=== PATIENT | male | born 1940 | race Caucasian/White ===

== ENCOUNTER 2019-05-27 09:16 | Outpatient (CLI) | payer MEDICARE, SELFPAY ==
--- NOTE | 2019-05-27 | MR_ITS ---
WS: [id number] MRI CERVICAL SPINE HISTORY: NECK PAIN COMPARISON: 10/04/[address] 08/27/2018 Very mild LEFT scoliosis. Prior anterior cervical fusion at C5-C6. Degenerative disc disease and desiccation throughout the cervical spine. Moderate disc space narrowin g at C6-7. Craniocervical junction is negative for acute process. Mild degenerative changes at the ce rvical odontoid process. Signal within the cord is normal. C2-C3: Normal. C3-C4: Mild osteophytic ridging and disc bulging. Moderate RIGHT foraminal narrowing due to osteophyt e and facet disease. C4-C5: Mild annular disc bulging and facet arthritis. Central disc protrusion and bilateral foraminal osteophytes. Mild central stenosis with moderate bilateral foraminal stenosis. C5-C6: Annular disc bulging and osteophytic ridging. CSF still surrounds the cord. Facet joint arthri tis and osteophytes contribute to moderate to severe bilateral foraminal stenosis. C6-C7: Mild annular disc bulging and osteophytes. Mild bilateral foraminal stenosis and central steno sis. C7-T1: Mild facet arthritis. Mild RIGHT foraminal stenosis. Paraspinal soft tissue are normal. MR/MR cervical spin wo con* [id number] IMPRESSION: 1. Prior anterior cervical fusion at C5-6. 2. Multilevel spondylitic changes and stenoses throughout the cervical spine. 3. Moderate to severe bilateral foraminal stenosis at C5-6. 4. Moderate RIGHT foraminal stenosis at C3-4. 5. Mild central with moderate bilateral foraminal stenosis at C4-5. 6. Mild bilateral foraminal stenosis at C6-7 and on the RIGHT at C7-T1.
--- NOTE | 2019-05-27 09:25 | XR_ITS ---
WS: [id number] LATERAL CERVICAL SPINE: 3 view. Lateral radiographs are performed in upright neutral, flexion and extension to the patient's toleranc e. HISTORY: Neck pain COMPARISON: 08/08/2018 Normal cervical alignment. Prior anterior cervical fusion with interbody spacer at C5-6. Disc space h eight has been maintained. No lucency around the screws or hardware failure is evident. Mild narrowin g of the C6-7 disc space. Hypertrophic osteophytes anteriorly from C4. Facet joints are narrowed thro ughout. With flexion and extension no instability. XR/XR cervical spine fl/ex [id number] IMPRESSION: 1. No cervical spine instability. 2. Prior cervical fusion with interbody spacer at C5-6 is stable.
== END 2019-05-27 09:17 | disposition home or self-care (01) ==
LOC: RADWPI 09:23
PROVIDERS: Family Provider Family Medicine; PCP Family Medicine; Visit Provider Licensed Practical Nurse
DX: M54.2 Cervicalgia (principal); Z98.890 Other specified postprocedural states; M43.22 Fusion of spine, cervical region; M47.892 Other spondylosis, cervical region; M48.02 Spinal stenosis, cervical region; Z98.1 Arthrodesis status
CPT/HCPCS: 72040; 72141

== ENCOUNTER 2019-09-16 12:49 | Outpatient (CLI) | payer OTHER, SELFPAY ==
--- NOTE | 2019-09-16 12:54 | MR_ITS ---
WS: [id number] MRI LUMBAR SPINE NONCONTRAST HISTORY: INTERVERTEBRAL DISC DISORDERS WITH RADICULOPATHY COMPARISON: 10/04/2017 and 11/04/2018 TECHNIQUE: Sagittal and axial multisequence imaging is submitted. Study was ordered with contrast but patient refused IV contrast due to renal insufficiency. Cervical fusion hardware at C5-6. Slight increase in thoracic kyphosis. Moderate elevation of the RIG HT hemidiaphragm. Moderate RIGHT convex curvature the lumbar spine with asymmetric disc space narrowing. No marrow sharona a or acute fracture. Severe disc space narrowing and endplate osteophytes throughout the lumbar spine. 3 mm retrolisthesis of L1, L2 and L3. Conus terminates normally at L1-2 disc level. L1-L2: Diffuse annular disc bulging and osteophytic ridging with mild facet and ligamentum flavum hyp ertrophy. Endplate osteophytes contribute to mild foraminal and subarticular recess stenosis. L2-L3: Diffuse asymmetric annular disc bulging and osteophytic ridging. Ligamentum flavum hypertrophy and facet arthritis. Significant narrowing and encroachment into the LEFT subarticular recess by ost eophyte and disc disease. Mild central stenosis. There is moderate bilateral foraminal stenosis and s ubarticular recess stenosis. Greater encroachment into the LEFT subarticular recess. L3-L4: Asymmetric disc bulging with marked ligamentum flavum disease and facet arthritis. Osteophytic ridging around the vertebral bodies. Moderate size laminectomy defect on the RIGHT. Mild clumping of the nerve roots. Severe RIGHT foraminal stenosis with moderate LEFT subarticular recess stenosis. L4-L5: Mild narrowing of the thecal sac due to ligamentum flavum disease and facet arthritis. Annular disc bulging and facet arthritis. RIGHT hemilaminectomy defect. Mild central with moderate RIGHT for aminal and subarticular recess stenosis. Only mild stenosis on the LEFT. L5-S1: Diffuse annular disc bulging with ligamentum flavum disease and facet arthritis. Mild bilatera l foraminal stenosis. Mild encroachment and contact on the RIGHT S1 nerve root. MR/MR lumbar spine wo con* [id number] IMPRESSION: 1. Severe spondylitic changes throughout the lumbar spine with moderate RIGHT convex curvature. No significant change since the MRI of 11/04/2018. 2. Multifocal and multilevel areas of stenoses as above. 3. Severe RIGHT foraminal stenosis and moderate LEFT subarticular recess steno sis at L3-4. 4. Mild central with moderate RIGHT foraminal subarticular recess stenosis at L4-5 with mild foraminal stenosis on the LEFT. 5. Moderate bilateral subarticular recess stenosis at L2-3. Slightly greater e ncroachment into the LEFT subarticular recess. 6. Laminectomy defects on the RIGHT at L3-4 and L4-5. 7. Mild disc osteophyte encroachment upon the RIGHT S1 nerve root.
--- NOTE | 2019-09-16 13:45 | XR_ITS ---
WS: [id number] LATERAL LUMBAR SPINE: 3 view. Lateral radiographs are performed in upright neutral, flexion and extension to the patient's toleranc e. HISTORY: Low back pain COMPARISON: None available. Diffuse osteopenia. Asymmetric disc space narrowing due to the RIGHT curvature of the lumbar spine. M arked facet joint arthritis. Very little movement with flexion and extension. 5 mm retrolisthesis of L1 and L2 with no instability during flexion or extension. There are large osteophytes extending ante riorly from the vertebral bodies. XR/XR lumbar spine f/e only [id number] IMPRESSION: 1. Severe spondylitic changes of the lumbar spine. 2. 5 mm retrolisthesis of L1 and L2 without instability.
== END 2019-09-16 12:50 | disposition home or self-care (01) ==
LOC: RADWPI 12:52
PROVIDERS: Family Provider Family Medicine; PCP Family Medicine; Visit Provider Licensed Practical Nurse
DX: M54.5 Low back pain (principal); M51.16 Intervertebral disc disorders with radiculopathy, lumbar region; M48.061 Spinal stenosis, lumbar region without neurogenic claudication; M25.78 Osteophyte, vertebrae
CPT/HCPCS: 72120; 72148

== ENCOUNTER → 2019-10-28 08:41 | Outpatient (BNVA) | payer OTHER, SELFPAY | PROVIDERS: Family Provider Family Medicine; PCP Family Medicine; Visit Provider Licensed Practical Nurse | DX: M51.16 Intervertebral disc disorders with radiculopathy, lumbar region (principal); M43.16 Spondylolisthesis, lumbar region; G60.8 Other hereditary and idiopathic neuropathies; M47.22 Other spondylosis with radiculopathy, cervical region | CPT/HCPCS: 99214 ==

== ENCOUNTER → 2019-11-25 09:30 | Outpatient (BNVA) | payer OTHER, SELFPAY | PROVIDERS: Family Provider Family Medicine; PCP Emergency Medicine Emergency Medical Services; Referring Provider Licensed Practical Nurse; Visit Provider Anesthesiology Pain Medicine | DX: M47.816 Spondylosis without myelopathy or radiculopathy, lumbar region (principal); M51.36 Other intervertebral disc degeneration, lumbar region; M48.062 Spinal stenosis, lumbar region with neurogenic claudication; M51.17 Intervertebral disc disorders with radiculopathy, lumbosacral region; M47.22 Other spondylosis with radiculopathy, cervical region; M50.90 Cervical disc disorder, unspecified, unspecified cervical region; M96.1 Postlaminectomy syndrome, not elsewhere classified; M43.10 Spondylolisthesis, site unspecified; M54.9 Dorsalgia, unspecified; Z98.890 Other specified postprocedural states | CPT/HCPCS: 99205 ==

== ENCOUNTER → 2019-12-03 13:16 | Outpatient (BNVA) | payer OTHER, SELFPAY | PROVIDERS: Family Provider Family Medicine; PCP Emergency Medicine Emergency Medical Services; Visit Provider Anesthesiology Pain Medicine | DX: M47.816 Spondylosis without myelopathy or radiculopathy, lumbar region (principal); M48.062 Spinal stenosis, lumbar region with neurogenic claudication; M54.9 Dorsalgia, unspecified | CPT/HCPCS: 64493; 64494; 64495; J3490 ==

== ENCOUNTER → 2019-12-17 09:30 | Outpatient (BNVA) | payer OTHER, SELFPAY | PROVIDERS: Family Provider Family Medicine; PCP Emergency Medicine Emergency Medical Services; Visit Provider Anesthesiology Pain Medicine | DX: M48.062 Spinal stenosis, lumbar region with neurogenic claudication (principal); M51.36 Other intervertebral disc degeneration, lumbar region; M47.816 Spondylosis without myelopathy or radiculopathy, lumbar region; M47.22 Other spondylosis with radiculopathy, cervical region; M50.90 Cervical disc disorder, unspecified, unspecified cervical region; M54.9 Dorsalgia, unspecified; M96.1 Postlaminectomy syndrome, not elsewhere classified; M43.10 Spondylolisthesis, site unspecified; Z98.890 Other specified postprocedural states; Z79.891 Long term (current) use of opiate analgesic | CPT/HCPCS: 99205; 99214 ==

== ENCOUNTER → 2019-12-23 13:08 | Outpatient (BNVA) | payer OTHER, SELFPAY | PROVIDERS: Family Provider Family Medicine; PCP Emergency Medicine Emergency Medical Services; Visit Provider Anesthesiology Pain Medicine | DX: M47.816 Spondylosis without myelopathy or radiculopathy, lumbar region (principal); M48.062 Spinal stenosis, lumbar region with neurogenic claudication; M54.9 Dorsalgia, unspecified; Z79.891 Long term (current) use of opiate analgesic | CPT/HCPCS: 64635; 64636; J1030 ==

== ENCOUNTER → 2020-01-06 12:47 | Outpatient (BNVA) | payer OTHER, SELFPAY | PROVIDERS: Family Provider Family Medicine; PCP Emergency Medicine Emergency Medical Services; Visit Provider Anesthesiology Pain Medicine | DX: M47.816 Spondylosis without myelopathy or radiculopathy, lumbar region (principal); M48.062 Spinal stenosis, lumbar region with neurogenic claudication; M51.36 Other intervertebral disc degeneration, lumbar region; M96.1 Postlaminectomy syndrome, not elsewhere classified; M54.9 Dorsalgia, unspecified; M50.90 Cervical disc disorder, unspecified, unspecified cervical region; M47.22 Other spondylosis with radiculopathy, cervical region; M43.10 Spondylolisthesis, site unspecified; Z98.890 Other specified postprocedural states; Z79.891 Long term (current) use of opiate analgesic | CPT/HCPCS: 64635; 64636; 99212; J1030 ==

== ENCOUNTER → 2020-01-19 10:55 | Outpatient (BNVA) | payer OTHER, SELFPAY | PROVIDERS: Family Provider Family Medicine; PCP Emergency Medicine Emergency Medical Services; Visit Provider Anesthesiology Pain Medicine | DX: M54.41 Lumbago with sciatica, right side (principal); M48.062 Spinal stenosis, lumbar region with neurogenic claudication; M47.816 Spondylosis without myelopathy or radiculopathy, lumbar region; M47.22 Other spondylosis with radiculopathy, cervical region; M50.90 Cervical disc disorder, unspecified, unspecified cervical region; M51.36 Other intervertebral disc degeneration, lumbar region; M43.10 Spondylolisthesis, site unspecified; M96.1 Postlaminectomy syndrome, not elsewhere classified; M54.9 Dorsalgia, unspecified; Z98.890 Other specified postprocedural states; Z79.891 Long term (current) use of opiate analgesic | CPT/HCPCS: 99213; 99214 ==

== ENCOUNTER → 2020-03-15 10:45 | Outpatient (BNVA) | payer OTHER, SELFPAY | PROVIDERS: Family Provider Family Medicine; PCP Emergency Medicine Emergency Medical Services; Visit Provider Anesthesiology Pain Medicine | DX: M96.1 Postlaminectomy syndrome, not elsewhere classified (principal); M48.062 Spinal stenosis, lumbar region with neurogenic claudication; M54.9 Dorsalgia, unspecified; M47.816 Spondylosis without myelopathy or radiculopathy, lumbar region; M47.22 Other spondylosis with radiculopathy, cervical region; M50.90 Cervical disc disorder, unspecified, unspecified cervical region; M51.36 Other intervertebral disc degeneration, lumbar region; M43.10 Spondylolisthesis, site unspecified; Z79.891 Long term (current) use of opiate analgesic; Z98.890 Other specified postprocedural states | CPT/HCPCS: 99214 ==

== ENCOUNTER 2020-06-12 17:43 | Inpatient (IN) | payer OTHER, MEDICARE, SELFPAY ==
--- NOTE | 2020-06-12 18:05 | PC.NURSE ---
Dr. Mckay and Dr. Mccray notified patient had arrived to floor. Dr. Mckay requested dressing of left heel be taken down. Dr. Mccray requested catheter cart with cystoscope at bedside.
[2020-06-12 18:36] VITALS: BP 111/66; PULSE 82; RESP 18; TEMP 36.9; O2SAT 96
--- NOTE | 2020-06-12 18:36 | XRR_ITS ---
PROCEDURE INFORMATION: Exam: XR Chest Exam date and time: 06/12/2020 7:41 PM Age: 80 years old Clinical indication: Dyspnea. COPD. TECHNIQUE: Imaging protocol: XR of the chest. Views: 1 view. COMPARISON: No relevant prior studies available. FINDINGS: Lungs: There is patchy opacity in the right upper lobe compatible with pneumonia. No pulmonary consolidation. Pleural spaces: No pleural effusion. No pneumothorax. Elevation of the right hemidiaphragm. Heart/Mediastinum: The cardiac silhouette appears prominent; this may be exaggerated by AP technique. No gross evidence of pneumomediastinum. Bones/joints: Cervical hardware is incompletely visualized. No gross fracture. XR/XR chest 1V portable [id number] IMPRESSION: Patchy opacity in the right upper lobe compatible with pneumonia.
--- NOTE | 2020-06-12 18:36 | CTR_ITS ---
PROCEDURE INFORMATION: Exam: CT Left Lower Extremity Without Contrast, Foot Exam date and time: 06/12/2020 7:15 PM Age: 80 years old Clinical indication: Left foot redness, pain and swelling. Possible osteomyelitis. TECHNIQUE: Imaging protocol: CT of the Left lower extremity without contrast was performed. Exam focused on the foot. Radiation optimization: All CT scans at this facility use at least one of these dose optimization techniques: automated exposure control; mA and/or kV adjustment per patient size (includes targeted exams where dose is matched to clinical indication); or iterative reconstruction. COMPARISON: No relevant prior studies available. RADIATION DOSE METRICS: Total DLP (mGy-cm): 177.58 FINDINGS: A heel ulcer is noted. No underlying osseous destruction is seen to suggest osteomyelitis. There is an age-indeterminate, nondisplaced fracture involving the posterior malleolus of the distal tibia. There is a probable acute or subacute, oblique fracture involving the distal metadiaphysis of the fibula. Dorsal subcutaneous edema is suspicious for cellulitis. CT/CT foot LT wo con* [id number] IMPRESSION: 1. A heel ulcer is noted. No underlying osseous destruction is seen to suggest osteomyelitis. 2. There is an age-indeterminate, nondisplaced fracture involving the posterior malleolus of the distal tibia. 3. There is a probable acute or subacute, oblique fracture involving the distal metadiaphysis of the fibula. 4. Dorsal subcutaneous edema is suspicious for cellulitis. Radiation Dose CTDIVOL = (mGy): DLP = 177.58 (mGy-cm)
--- NOTE | 2020-06-12 18:42 | P.HP_ITS ---
Providers/Chief Complaint Admitting Physician: Chavo Mckay MD Primary Care Provider: Roosevelt Lieberman DO Chief Complaint: L HEEL ULCER History of Present Illness Kishan Patel is a 80 year old male with past medical history of parkinsonism, hypothyroidism, COPD, CKD stage III, questionable history of peripheral arterial disease, hyperlipidemia, hypertension, history of prostate cancer with chronic indwelling Moscoso catheter who was transferred over here from [facility]. Patient went to [facility] 4 days ago when he was sent over from wound care center because he felt sick to them. On presentation to the hospital he was found to have TUAN on CKD with creatinine of 3.6 with bruising left foot ulcers with admitted for possible cellulitis. Patient also gives history of having chronic Moscoso catheter which apparently fell out 3 weeks ago and was replaced only when he went to the hospital with a feeding tube as at the hospital they were not able to go past his prostate. He was treated with antibiotics vancomycin and cefepime at the hospital. Patient as per the transferring doctor did not have any fevers during hospitalization remained hemodynamically stable and his creatinine came down to 1.7. As they were concerned about patient having osteomyelitis needing podiatry service and proper Moscoso catheterization needing urologist further transfer to a higher center was sought and patient was [place] [facility] examination on the floor patient is lying comfortably in bed without any nausea vomiting, headache, fever. He denies having any headache abdominal pain, diarrhea, dysuria at present. He had Covid vaccination with last dose a month a go. Blood work done at the outside hospital shows a hemoglobin of 12.8, white count not available, BUN 27, down from 43, creatinine of 1.7, down from 3.6, sodium 140, potassium 3.8, phosphorus of 3.3. Unfortunately no other labs were sent over. Medications as per discharge is as 51 mg daily, lisinopril 10 mg/h lovastatin 20 mg daily, Prozac 20 mg daily, amitriptyline 25 mg daily, carbidopa 25?100 daily, levothyroxine 125 mcg daily. We will confirm from the pharmacy and to med rec. Review of Systems General: Reports: 10 or more systems reviewed and unremarkable except in HPI and below Const: Denies: fever(s), chills, body aches, change in appetite, change in weight, malaise, night sweats, diaphoresis, change in sleep pattern, daytime sleepiness or snoring Eyes: Denies: change in vision, blurry vision, photophobia, eye discomfort or eye discharge ENMT: Denies: throat pain, enlarged tonsils, hoarseness, mouth pain, oral sores, dry mouth, tinnitus, nasal congestion or post nasal drip Card: Denies: chest pain, palpitations, irregular heart rhythm, edema, swellin g of feet/ankles, lightheadedness, syncope, pre-syncope, dyspnea on exertion, orthopnea, leg pain with exertion or acrocyanosis Resp: Denies: dyspnea, productive cough, non-productive cough, wheezing, stridor, pain on inspiration, change in phlegm color, hemoptysis or chest congestion GI: Denies: abdominal pain, nausea, vomiting, hematemesis, coffee ground emesis, dysphagia, heartburn, diarrhea, constipation, bloating, GI cramping, change in bowel habits, pain on defecation, hematochezia or melena : Denies: flank pain, difficulty urinating, dysuria, urinary frequency, urinary urgency, urinary hesitancy, urinary dribbling, difficulty starting urination, change in urine stream, nocturia or hematuria Musc: Denies: neck pain, back pain, extremity pain, joint pain, joint s welling, joint redness, joint stiffness or limited range of motion Neuro: Denies: headache(s), numbness in extremities, weakness in extremities, sensory changes, lack of coordination, difficulty walking, frequent falls, dizziness, vertigo, confusion, Slurred speech present, difficulty communicating thoughts or seizure-like activity Psych: Denies: anxiety, depression, mood swings, panic attacks, hopelessness or irritability Endo: Denies: polyuria, polydipsia, tired all the time, cold intolerance, excessive sweating, flushing or heat intolerance Jef/Lymph: Denies: easy bruising or easy bleeding All/Imm: Denies: tongue swelling, facial swelling or acute wheezing Medications/Allergies Home Medications Medication Instructions Recorded Confirmed Last Taken Type albuterol sulfate 90 mcg/actuation 2 puff INHALATION Q6H PRN 03/31/19 03/15/20 Unknown History aerosol inhaler levothyroxine 125 mcg tablet 125 mcg PO DAILY 03/31/19 03/15/20 Unknown History simvastatin 20 mg tablet 20 mg PO DAILY 03/31/19 03/15/20 Unknown History acetaminophen 500 mg tablet 500 mg PO Q6H PRN 05/15/19 03/15/20 Unknown History aspirin 81 mg tablet,delayed 81 mg PO DAILY 05/15/19 03/15/20 Unknown History release omeprazole 20 mg capsule,delayed 20 mg PO DAILY cap 05/15/19 03/15/20 Unknown History release budesonide-formoterol HFA 80 2 puff INHALATION BID 10/30/19 03/15/20 Unknown History mcg-4.5 mcg/actuation aerosol inhaler amitriptyline 100 mg tablet 50 mg PO DAILY tab 11/25/19 03/15/20 Unknown History lisinopril 40 mg tablet 40 mg PO DAILY 11/25/19 03/15/20 Unknown History tizanidine 2 mg tablet 2 mg PO BID PRN #60 tab 01/06/20 03/15/20 Unknown Rx carbidopa 25 mg-levodopa 100 mg 1 tab PO ONCE tab 01/19/20 03/15/20 Unknown History tablet tramadol 50 mg tablet 50 mg PO BID PRN #60 tab 01/19/20 03/15/20 Unknown Rx gabapentin 300 mg capsule 300 mg PO TID #90 cap 03/15/20 03/15/20 Unknown Rx hydrocodone 5 mg-acetaminophen 325 1 tab PO BID PRN 7 Days #14 tab 03/15/20 03/15/20 Unknown Rx mg tablet Allergies Allergy/AdvReac Type Severity Reaction Status Date / Time No Known Allergies Allergy Verified 03/15/20 11:06 PFSH Acute PFSH: Medical History (Updated 06/12/20 @ 18:46 by Chavo Mckay MD) Cervical spondylosis with radiculopathy Chronic indwelling Moscoso catheter COPD (chronic obstructive pulmonary disease) Enrolled in chronic care management Hypothyroid 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 Rizo 06/27/18 C5-C6 anterior cervical discectomy/fusion. History of tonsillectomy Hx of knee surgery Family History Father , at age 75 Diabetes Mother , at age 102 Glaucoma Social History (Updated 03/15/20 @ 11:08 by Chrissy Phelps LPN) Smoking and tobacco status: former smoker Second hand smoke exposure: No Alcohol intake: never Household members: friend(s) Marital status: Current occupational status: retired History of recent travel: No Physical Exam Narrative: EXAM NARRATIVE: General: No acute distress, AO x3 HEENT: PERRLA, pupils bilaterally equal and reactive Chest: Normal vesicular breath sounds, no added sounds, equal good air entry bilaterally CVS: S1-S2 regular, no murmurs, no tachycardia, no gallops, no rubs Abdomen: Soft, nontender, no organomegaly, bowel sounds present Neuro: No focal deficits, no facial deformity, AO x3, power 5/5 in all limbs Extremities: Miranda size ulcers present at the heel of left foot with surrounding sloughing present, unhealthy white contact mildly foul-smelling base present, no bleeding grossly seen. Data : 06/12/20 18:36 06/12/20 18:36 A&P Assessment and plan (1) Ulcer of left foot: Status: Acute (2) Acute kidney injury superimposed on CKD: Status: Acute (3) CKD (chronic kidney disease): Status: Acute (4) Urethral stricture: Status: Acute Qualifiers: Urethral stricture sex-location: male urethra-overlapping sites Urethral stricture type: post-procedural Qualified Code(s): N99.116 - Postprocedural urethral stricture, male, overlapping sites (5) Chronic indwelling Moscoso catheter: Status: Acute (6) COPD (chronic obstructive pulmonary disease): Status: Acute (7) Hypothyroid: Status: Acute Additional A&P Information 78-year-old man with past medical history of CKD, chronic indwelling Moscoso catheter for history of prostate cancer transferred from outside hospital for podiatry and urology consultation for heel ulcer and replacement of Moscoso valerie ter. Very limited labs from outside hospital available for now. Will request for further labs. Left heel ulcer: Cannot rule out osteomyelitis. Check ESR, CRP. CT foot without contrast. If needed we can do MRI as well. Start patient on vancomycin and Zosyn. Check Vanco random level and dose Vanco accordingly. We will try to keep trough between 15 and 20. If bone involvement will consult podiatry for further assistance. If no bony involvement will consult wound care service. For now we will dress with Hydrofera Blue. Sheldon 5 every 8 hours as needed for pain control. Moscoso catheter: Right now patient has a 5 Bulgarian feeding tube for Moscoso catheter. Will consult urology for formal catheterization. Monitor urine output. UA and urine culture post Moscoso placement. TUAN on CKD: As per the records creatinine improving coming down from 3.6-1.7. Recheck BMP. Check urine lites, urine creatinine. COPD: Budesonide twice daily, DuoNebs every 6 hours. Oxygen supplementation keeping saturation over 90%. No acute exacerbation for now. For hypertension: Goal blood pressure less than 140/90 mmHg. Continue other chronic medications. Will change medication as per the clinical picture. Check wound culture, blood culture, CBC, CMP, urine lites, urine creatinine. CODE STATUS: Patient would like to be full code. Heparin 5000 every 12. Cardiac diet. Attestations Medical Necessity Statement*: Patient requires hospitalization for management of possible osteomyelitis, cellulitis with ulcer of left heel, TUAN on CKD in setting of chronic indwelling Moscoso catheter. Time Spent in Patient Care: Greater than 35 minutes (>than 50% of time spent in counselling and/or direct pt care on unit) . Coding Level of Care Code Acute [employer] for g Fwd Diagnoses Ulcer of left foot L97.529 Acute kidney injury superimposed on CKD N17.9; N18.9 CKD (chronic kidney disease) N18.9 Urethral stricture N99.116 Urethral stricture sex-location: male urethra-overlapping sites Urethral stricture type: post-procedural Chronic indwelling Moscoso catheter Z97.8 COPD (chronic obstructive pulmonary disease) J44.9 Hypothyroid E03.9
[2020-06-12 19:25] LABS: Basophils % 0.5 %; Eosinophils # 0.3 10^3/uL (0.0-0.8); Eosinophils % 4.8 %; Hemoglobin 12.1 g/dL (11.7-16.6); Lymphocytes # 1.2 10^3/uL (0.8-4.8); Lymphocytes % 18.4 %; Mean Corpuscular HGB Conc 31.8 g/dL (30.0-36.0); Mean Corpuscular Hemoglobin 30.8 pg (28.0-34.0); Mean Corpuscular Volume 96.7 fL (80-94); Mean Platelet Volume 10.1 fL (7.4-10.4); Monocytes # 0.4 10^3/uL (0.2-0.9); Monocytes % 6.6 %; Neutrophils # 4.33 10^3/uL (1.8-7.7); Neutrophils % 69.2 %; Nucleated Red Blood Cells % 0 %; Platelet Count 182 10^3/cmm (130-400); Red Blood Count 3.93 10^6/uL (4.1-5.3); Red Cell Distribution Width 14.6 % (12.1-15.1); White Blood Count 6.3 10^3/uL (4.0-10.0)
--- NOTE | 2020-06-12 19:58 | P.CONIM_ITS ---
Providers/Reason For Consult Consulting Physican/Specialty*: Urology/[place] Reason for Consult*: Urethral stricture, urinary retention, inability to pass catheter Attending Physician: Chavo Mckay MD Primary Care Provider: Roosevelt Lieberman DO History of Present Illness History of Present Illness Kishan Patel is a 80 year old male well-known to me for history of prostate cancer, recurrent UTIs, complex urethral stricture disease. He has had a complicated methodology and maintaining urethral patency via self- catheterization at times, chronic indwelling catheters at times and active as well as passive dilation of the stricture. His last visit in the office was in October 2019. At that time he was maintaining the Moscoso catheter indwelling most of the time and would take it out occasionally for a day or 2. At times he would have difficulty getting the catheter back in. He was performing self clean intermittent catheterization but was having increasing difficulty getting the catheter in over time leading to the mostly indwelling catheter. We had discussed on multiple occasions the options of converting to a suprapubic tube. He has been reluctant to even consider that. This hospitalization was initiated as a request for direct transfer from [facility]. Patient was hospitalized for acute on chronic kidney disease, progressive problems with heel wound, and general debilitation. He reported that his Moscoso catheter had come out probably 2 to 3 weeks prior and had not replaced it. Thankfully a catheter was able to be placed at [facility] but the largest that could be achieved was a 5 [place] feeding tube. This fits the picture of urethral stricture as the source of obstruction as opposed to prostatic hypertrophy. Creatinine on admission to [facility] (06/09/2020) was 3.6 and decreased by discharge today to 1.7. I was consulted for further evaluation and treatment regarding his catheterization of his bladder. Patient reports that the catheter fell out. He could not remember exactly when but someone had reported in his old records that it fell out maybe 2 to 3 weeks prior. Normally in the past he would replace it or do self-catheterization. He thinks his memory is worsening and he just forgot to do that. He also was not sure how he could get to my office where he knew that we would want to evaluate him sooner than later. Ultimately once the attempts were made to get a catheter in his stricture had progressed significantly. I reviewed her options. Performed a bedside dilation of urethral stricture with filiforms and followers. Was able after dilating to [address] [place] a 14 [place] coud? catheter with some difficulty but ultimately successful placement in good function. This will lead to further passive dilation and I can manage the rest of it on the outpatient basis after he had some time for that to occur. SEE PROCEDURE NOTE We will follow Review of Systems Const: Denies: fever(s) or chills Eyes: Denies: change in vision ENMT: Denies: odynophagia or change in hearing Card: Denies: chest pain or palpitations Resp: Reports: dyspnea; Denies: wheezing GI: Denies: abdominal pain, nausea or vomiting : Reports: difficulty urinating and change in urine stream Musc: Reports: neck pain and back pain; Denies: joint redness or joint warmth Skin/Breast: Reports: rash and changing lesions Neuro: Reports: headache(s), weakness in extremities, lack of coordination, difficulty walking and frequent falls Psych: Reports: anxiety, depression and memory loss Endo: Denies: flushing or hot flashes Jef/Lymph: Denies: easy bruising or easy bleeding All/Imm: Denies: urticaria or facial swelling Meds/Allergies Home Medications and Allergies Home Medications Medication Instructions Recorded Confirmed Last Taken Type albuterol sulfate 90 mcg/actuation 2 puff INHALATION Q6H PRN 03/31/19 03/15/20 Unknown History aerosol inhaler levothyroxine 125 mcg tablet 125 mcg PO DAILY 03/31/19 03/15/20 Unknown History simvastatin 20 mg tablet 20 mg PO DAILY 03/31/19 03/15/20 Unknown History acetaminophen 500 mg tablet 500 mg PO Q6H PRN 05/15/19 03/15/20 Unknown History aspirin 81 mg tablet,delayed 81 mg PO DAILY 05/15/19 03/15/20 Unknown History release omeprazole 20 mg capsule,delayed 20 mg PO DAILY cap 05/15/19 03/15/20 Unknown History release budesonide-formoterol HFA 80 2 puff INHALATION BID 10/30/19 03/15/20 Unknown History mcg-4.5 mcg/actuation aerosol inhaler amitriptyline 100 mg tablet 50 mg PO DAILY tab 11/25/19 03/15/20 Unknown History lisinopril 40 mg tablet 40 mg PO DAILY 11/25/19 03/15/20 Unknown History tizanidine 2 mg tablet 2 mg PO BID PRN #60 tab 01/06/20 03/15/20 Unknown Rx carbidopa 25 mg-levodopa 100 mg 1 tab PO ONCE tab 01/19/20 03/15/20 Unknown History tablet tramadol 50 mg tablet 50 mg PO BID PRN #60 tab 01/19/20 03/15/20 Unknown Rx gabapentin 300 mg capsule 300 mg PO TID #90 cap 03/15/20 03/15/20 Unknown Rx hydrocodone 5 mg-acetaminophen 325 1 tab PO BID PRN 7 Days #14 tab 03/15/20 03/15/20 Unknown Rx mg tablet Allergies Allergy/AdvReac Type Severity Reaction Status Date / Time No Known Allergies Allergy Verified 03/15/20 11:06 PFSH Acute PFSH: Medical History Cervical spondylosis with radiculopathy Chronic indwelling Moscoso catheter COPD (chronic obstructive pulmonary disease) Enrolled in chronic care management Hypothyroid 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 Rizo 06/27/18 C5-C6 anterior cervical discectomy/fusion. History of tonsillectomy Hx of knee surgery Family History Father , at age 75 Diabetes Mother , at age 102 Glaucoma Social History Smoking and tobacco status: former smoker Second hand smoke exposure: No Alcohol intake: never Household members: friend(s) Marital status: Current occupational status: retired History of recent travel: No Vitals/I&O/Wt Last Vital Signs Temp 98.5 F 06/12/20 18:36 Pulse 82 06/12/20 18:36 Resp 18 06/12/20 18:36 BP 111/66 06/12/20 18:36 Pulse Ox 96 06/12/20 18:36 Physical Exam Const: COMMON NORMALS: no acute distress and alert GENERAL APPEARANCE: well kempt and well developed HENMT: COMMON NORMALS: normocephalic and atraumatic HEAD & SCALP: normocephalic and atraumatic Eye: COMMON NORMALS: no scleral icterus Neck/C-Spine: COMMON NORMALS: negative for full ROM GENERAL: Yes trachea midline Lymph: LYMPHATIC: no lymphadenopathy noted and no lymphedema noted Resp: COMMON NORMALS: normal respiratory effort and No retractions EFFORT & INSPECTION: Yes able to speak in complete sentences, No tachypneic and No respiratory distress Cardio: COMMON NORMALS: regular rate and regular rhythm RATE: regular rate RHYTHM: regular rhythm GI: COMMON NORMALS: Soft to palpation, non-tender and no masses PALPATION: Yes Soft to palpation : COMMON NORMALS: Yes no CVA tenderness BLADDER/KIDNEY EXAM: Yes bladder normal to palpation and Yes no CVA tenderness MALE GROIN/PERINEUM EXAM: No ecchymosis PENIS: normal penis and circumcised MEATUS: hypospadias (Catheter related. Roughly 3-5 [place] feeding tube in the urethral meatus.) SCROTUM: Yes testes descended bilaterally and No Scrotal tenderness present TESTES: No testicular mass Back/Pelvis: COMMON NORMALS: no CVA tenderness Extremity: OTHER: Lower extremity weakness, left foot ulcer Neuro: COMMON NORMALS: no focal motor deficits SENSORIUM/ORIENTATION: Yes alert Psych: COMMON NORMALS: mental status grossly normal, Normal thought process present and cooperative APPEARANCE: Yes grossly normal and Yes well kempt ATTITUDE: Yes calm and Yes engaged THOUGHT PROCESS: Normal thought process present OTHER: Mild difficulty with memory Skin: COMMON NORMALS: no rashes or lesions noted and no jaundice GENERAL SKIN EXAM: no rashes or lesions noted Data Micro: Micro: Microbiology 06/12/20 18:42 Blood Culture - Pr eliminary Blood SPECIMEN [facility] 06/12/20 18:36 Blood Culture - Pr eliminary Blood SPECIMEN [facility] A&P Assessment and plan (1) Urethral stricture: Previously managed with indwelling Moscoso catheter after long-term [facility] for stricture patency maintenance with ultimate failure. Had done well until couple weeks ago the catheter fell out. He thinks the balloon was inflated at the time. Unfortunately he did not seek help to replace the catheter and developed as expected progressive stricturing of the urethra again leading to inability to pass normal catheter. Problem temporarily addressed with a 5 [place] feeding tube which helped improve drainage and improved acute kidney injury. Luba I performed filiform and follower dilations of the distal urethral stricture and placed a 12 [place] coud? tip catheter with some difficulty. Plan: Leave catheter in place for least 1 to 2 weeks and then follow-up exchanged in the clinic for a larger catheter for further passive dilation and long-term management. We will talk again about suprapubic tube options but for now the crisis is averted. Status: Acute Qualifiers: Urethral stricture type: post-procedural Urethral stricture sex- location: male urethra-overlapping sites Qualified Code(s): N99.116 - Postprocedural urethral stricture, male, overlapping sites (2) Urinary retention: Secondary to urethral stricture disease Status: Acute (3) Acute kidney injury superimposed on CKD: Exacerbated by urinary retention from urethral stricture disease. Status: Acute (4) CKD (chronic kidney disease): Status: Acute (5) Cervical disc disease: Status: Acute Coding Level of Care Code Acute Shift Mechanic for [facility] Diagnoses Urethral stricture N99.116 Urethral stricture type: post-procedural Urethral stricture sex-location: male urethra-overlapping sites Urinary retention R33.9 Acute kidney injury superimposed on CKD N17.9; N18.9 CKD (chronic kidney disease) N18.9 Cervical disc disease M50.90
[2020-06-12 20:09] LABS: Procalcitonin 0.35 ng/mL (0-0.5)
[2020-06-12 20:12] LABS: Thyroid Stimulating Hormone 35.83 uIU/mL (0.27-4.20)
[2020-06-12 20:15] VITALS: BP 138/70; PULSE 84; RESP 15; TEMP 37; O2SAT 97
[2020-06-12 20:23] LABS: Alanine Aminotransferase < 5 U/L (0-41); Albumin Level 2.9 g/dL (3.5-5.2); Alkaline Phosphatase 84 IU/L (40-130); Anion Gap 15.8 (5-19); Aspartate Amino Transferase 16 U/L (0-40); Blood Urea Nitrogen 22 mg/dL (8-23); Calcium 8.9 mg/dL (8.5-10.5); Carbon Dioxide 21 mmol/L (22-29); Chloride 107 mmol/L (98-107); Globulin 2.2 g/dL (1.3-4.6); Glucose 110 mg/dL (65-115); Osmolality Calculated 294 mOsm/kg (285-295); Potassium 3.8 mmol/L (3.5-5.1); Sodium 140 mmol/L (136-145); Total Bilirubin 0.2 mg/dL (0.15-1.2); Total Protein 5.1 g/dL (6.6-8.7)
--- NOTE | 2020-06-12 20:59 | P.PCN_ITS ---
Other Information: Procedure: 1. Filiform dilation of distal urethral stricture 2. Placement of Moscoso catheter (difficult secondary to altered anatomy) See consult performed on 06/12/2020. Patient had a 5 Stateless feeding tube in the urethra that was draining. He was having some leakage around the catheter as well. I tried to pass an 8 Stateless straight catheter but this was too large to get through the strictured area. The 5 Stateless was easy to move in and out. I recommended a filiform and follower dilation procedure and he agreed. Consent was obtained. A 3 Stateless straight filiform was then passed easily through the distal urethral stricture. Stricture location was approximately 1.5 to 2 cm from the hypospadiac meatus. Sequential dilations with follower secured to the 3 Stateless straight filiform was then conducted from 8 Stateless up to 16 Stateless. Good drainage with each. The filiform and 16 Stateless dilator were removed and then a 12 Stateless coud? tip catheter was passed with some difficulty through the narrowed area. Ultimately though it was able to be manipulated into the bladder with good function and the balloon was inflated without difficulty and the catheter snugged up to the prostate loosely. Catheter was placed to dependent drainage and the procedure was completed. Secured with a Esau catheter strap type device. PLANS: 1. Maintain Moscoso catheter for passive dilation 2. Will exchange for larger catheter in 1 to 2 weeks in my office for further passive dilation. Coding Level of Care Code Acute Natural History Collections Curator for [facility]
[2020-06-12 21:02] LABS: Erythrocyte Sedimentation Rate 92 mm/hr (0-10)
[2020-06-12 21:10] LABS: Iron 39 ug/dL (59-158); Percent Saturation 27.4 % (20-50); Total Iron Binding Capacity 142 mcg/dl; Unsaturated Iron Binding 103 ug/dL (112-347)
[2020-06-12 21:11] VITALS: PULSE 77; RESP 17; O2SAT 97
[2020-06-12 21:41] LABS: Vancomycin Random 15.2 ug/mL (20.0-40.0)
[2020-06-12] MEDS: sodium chloride 0.9% 1,000 ML 50 ML IV (22:16)
[2020-06-12] MEDS: piperacillin-tazobactam 3.375 GM in sodium chloride 0.9% (plus) 50 ML IV (22:18)
[2020-06-12] MEDS: famotidine 20 mg/2 mL INJ IVP (22:20)
[2020-06-12] MEDS: heparin 5,000 unit/mL INJ 1 mL 5000 UNIT SUBCUT (22:22)
[2020-06-12] MEDS: vancomycin 1,500 MG/300 ML PIGGYBACK 200 MG IV (22:42)
[2020-06-12 23:37] VITALS: BP 121/72; PULSE 82; RESP 17; TEMP 37.1; O2SAT 94
[2020-06-12 23:38] LABS: Bilirubin Urine Neg (Negative); Blood Urine 2+ (Negative); Glucose Urine UA 1+ (Normal); Ketones Urine Negative (Negative); Leukocyte Esterase Urine 1+ (Negative); Nitrate Urine Negative (Negative); Protein Urine Neg (Negative); Specific Gravity, Urine 1.015 (1.005-1.030); Urine Appearance Clear (CLEAR); Urine Color Yellow (Yellow); Urobilinogen Urine Norm (Negative); pH Urine 5 (5-7)
[2020-06-12 23:49] LABS: Potassium, Radom Urine 19 mmol/L; Urine Creatinine 58 mg/dL (39-259); Urine Random Chloride 167 mmol/L; Urine Random Sodium 177 mmol/L
[2020-06-13] VITALS (7 sets, daily range): BP systolic 110–150; BP diastolic 71–76; PULSE 81–89; RESP 16–18; TEMP 36.7–37; O2SAT 93–96
[2020-06-13 00:01] LABS: Add Urine Culture? No; Bacteria Urine TRACE /hpf; Squamous Epithelial Cell Urine 15-25 /hpf (0-5); WBC Urine 15-25 /hpf (0-5)
[2020-06-13] MEDS: piperacillin-tazobactam 3.375 GM in sodium chloride 0.9% (plus) 50 ML IV ×3 (03:40→18:07)
[2020-06-13] MEDS: heparin 5,000 unit/mL INJ 1 mL 5000 UNIT SUBCUT ×2 (05:46→18:00)
[2020-06-13] MEDS: famotidine 20 mg/2 mL INJ IVP ×2 (05:46→18:03)
[2020-06-13 07:53] LABS: Basophils % 0.6 %; Eosinophils # 0.3 10^3/uL (0.0-0.8); Eosinophils % 5.3 %; Hematocrit 36.6 % (42.0-52.0); Hemoglobin 11.8 g/dL (11.7-16.6); Lymphocytes # 1.2 10^3/uL (0.8-4.8); Lymphocytes % 19.8 %; Mean Corpuscular HGB Conc 32.2 g/dL (30.0-36.0); Mean Corpuscular Hemoglobin 30.6 pg (28.0-34.0); Mean Corpuscular Volume 94.8 fL (80-94); Monocytes # 0.5 10^3/uL (0.2-0.9); Monocytes % 8.3 %; Neutrophils # 4.05 10^3/uL (1.8-7.7); Neutrophils % 65.7 %; Nucleated Red Blood Cells % 0 %; Platelet Count 192 10^3/cmm (130-400); Red Blood Count 3.86 10^6/uL (4.1-5.3); Red Cell Distribution Width 14.6 % (12.1-15.1); White Blood Count 6.2 10^3/uL (4.0-10.0)
[2020-06-13 08:15] LABS: Lactic Sepsis W/Reflex 0.7 mmol/L (0.5-2.2)
[2020-06-13 08:17] LABS: Alanine Aminotransferase 8 U/L (0-41); Albumin Level 2.5 g/dL (3.5-5.2); Alkaline Phosphatase 78 IU/L (40-130); Aspartate Amino Transferase 19 U/L (0-40); Blood Urea Nitrogen 18 mg/dL (8-23); Carbon Dioxide 20 mmol/L (22-29); Chloride 110 mmol/L (98-107); Chol HDL Ratio 3.86 mg/dL (1.0-5.00); Cholesterol 143 mg/dL (0-200); Creatine Phosphokinase 33 U/L (39-308); Ferritin 322 ng/mL (30-400); Glucose 89 mg/dL (65-115); HDL Cholesterol 37 mg/dL (60-100); LDL Cholesterol Calculated 80 mg/dL (50-129); Magnesium 1.4 mg/dL (1.7-2.3); Osmolality Calculated 291 mOsm/kg (285-295); Phosphorus 2.2 mg/dL (2.5-4.5); Sodium 140 mmol/L (136-145); Total Bilirubin 0.3 mg/dL (0.15-1.2); Total Protein 5.5 g/dL (6.6-8.7); Triglycerides 129 mg/dL (0-150); VLDL Cholestrol Calculation 26 mg/dL (0-30)
[2020-06-13 09:22] LABS: Estmated Average Glucose 114; Hemoglobin A1C 5.6 % (4.0-6.0)
[2020-06-13] MEDS: HYDROcodone-acetaminophen 5-325 mg Tablet 1 TAB PO (09:23)
--- NOTE | 2020-06-13 12:38 | XRR_ITS ---
PROCEDURE INFORMATION: Exam: XR Left Foot Exam date and time: 06/13/2020 12:41 PM Age: 80 years old Clinical indication: Pain; Foot; Left; Additional info: Left fibula FX wih equinus deformit of left foot TECHNIQUE: Imaging protocol: XR Left foot. Views: 1 or 2 views. COMPARISON: CT foot LT wo con* [id number] 06/12/2020 7:47 PM FINDINGS: Bones/joints: The toes are angled laterally. No acute bony abnormalities seen. Soft tissues: Unremarkable XR/XR foot LT 2V [id number] IMPRESSION: 1. No acute bone abnormalities 2. Unremarkable soft tissues
--- NOTE | 2020-06-13 13:02 | P.PN_ITS ---
Subjective Subjective: Interval history: No acute events overnight. Patient has remained hemodynamically stable, afebrile. On review of the records from [facility] patient already had a urine culture which was positive for E. coli resistant to levofloxacin. Patient had a Moscoso catheter placed again last night. Vitals/I&O/Wt Last Vital Signs Temp 98.1 F 06/13/20 12:00 Pulse 89 06/13/20 12:00 Resp 17 06/13/20 12:00 BP 111/74 06/13/20 12:00 Pulse Ox 93 06/13/20 08:55 06/12/20 06/13/20 06/13/20 22:59 06:59 14:59 Intake Total 350 / 350 470 / 470 Output Total 300 / 300 750 / 1050 800 / 800 Balance -300 / -300 -400 / -700 -330 / -330 Weight last 48 hrs Weight 100.108 kg Weight 99.564 kg Physical Exam Narrative: EXAM NARRATIVE: General: No acute distress, AO x3 HEENT: PERRLA, pupils bilaterally equal and reactive Chest: Normal vesicular breath sounds, no added sounds, equal good air entry bilaterally CVS: S1-S2 regular, no murmurs, no tachycardia, no gallops, no rubs Abdomen: Soft, nontender, no organomegaly, bowel sounds present Neuro: No focal deficits, no facial deformity, AO x3, power 5/5 in all limbs Extremities: Miranda size ulcers present at the heel of left foot with surrounding sloughing present, unhealthy white contact mildly foul-smelling base present, no bleeding grossly seen. Urinary Catheter Management^: Moscoso: Cath Placed During This Visit: yes Urinary Catheter Date of Insertion: 06/12/20 Urinary Catheter Time of Insertion: 20:00 Data : 06/13/20 07:05 06/13/20 07:05 Micro: Microbiology 06/12/20 18:42 Blood Culture - Preliminary Blood SPECIMEN COLLECTED 06/12/20 18:36 Blood Culture - Preliminary Blood SPECIMEN COLLECTED A&P Assessment and plan (1) Ulcer of left foot: Status: Acute (2) Acute kidney injury superimposed on CKD: Status: Acute (3) CKD (chronic kidney disease): Status: Acute (4) Urethral stricture: Status: Acute Qualifiers: Urethral stricture sex-location: male urethra-overlapping sites Urethral stricture type: post-procedural Qualified Code(s): N99.116 - Postprocedural urethral stricture, male, overlapping sites (5) Chronic indwelling Moscoso catheter: Status: Acute (6) COPD (chronic obstructive pulmonary disease): Status: Acute (7) Hypothyroid: Status: Acute (8) Left tibial fracture: Status: Acute Additional A&P Information 78-year-old man with past medical history of CKD, chronic indwelling Moscoso catheter for history of prostate cancer transferred from outside hospital for podiatry and urology consultation for heel ulcer and replacement of Moscoso catheter. Very limited labs from outside hospital available for now. Will request for further labs. Left heel ulcer: ESR and CRP elevated though CT foot without contrast not revealing any osteomyelitis. On review from cultures from [facility] apparently patient did not have a blood culture or a wound culture done there. MRSA swab results are awaited. We will consult surgery for possible debridement. For now continue with vancomycin and Zosyn. Wound care as per surgery. [place] 5 mg every 8 hour as needed. Tibial fracture: We will consult orthopedics to see if patient needs a boot versus cast. Moscoso catheter: Appreciate urology help. Catheter placed yesterday after dilation of distal urethral stricture. Monitor urine output. UA and urine culture post Moscoso placement. TUAN on CKD: Resolved. Creatinine 1.5. Not sure what patient's baseline creatinine is. Stop IV fluids as patient is taking orally well. COPD: Nebulization as needed. Oxygen supplementation keeping saturation over 90%. No acute exacerbation for now. Hypertension: Goal blood pressure less than 140/90 mmHg. Continue other chronic medications. Will change medication as per the clinical picture. Start patient on oral iron supplementation for iron deficiency anemia. TSH elevated. Check free T3 and free T4. CODE STATUS: Patient would like to be full code. Heparin 5000 every 12. Cardiac diet. Attestations Medical Necessity Statement*: Patient requires further hospitalization for management of left heel ulcer, left tibia fracture. Time Spent in Patient Care: Greater than 35 minutes (>than 50% of time spent in counselling and/or direct pt care on unit) . Coding Level of Care Code Acute Sales Communications Manager for [facility] Mehreen Diagnoses Ulcer of left foot L97.529 Acute kidney injury superimposed on CKD N17.9; N18.9 CKD (chronic kidney disease) N18.9 Urethral stricture N99.116 Urethral stricture sex-location: male urethra-overlapping sites Urethral stricture type: post-procedural Chronic indwelling Moscoso catheter Z97.8 COPD (chronic obstructive pulmonary disease) J44.9 Hypothyroid E03.9 Left tibial fracture S82
--- NOTE | 2020-06-13 13:57 | P.CONIM_ITS ---
Providers/Reason For Consult Consulting Physican/Specialty*: Chavo Mckay MD Reason for Consult*: Left heel ulcer Attending Physician: Chavo Mckay MD Primary Care Provider: Roosevelt Lieberman DO History of Present Illness History of Present Illness Kishan Patel is a 80 year old male who was transferred from [facility] for issues with Moscoso catheter and wound care. Patient states that he had a fall in February this year and since then he has been unable to flex his left ankle. Patient was told to be nonweightbearing on the left leg. Patient subsequently developed an ulcer on the leg and due to concern about possible osteomyelitis patient was transferred here for further care. He is not a diabetic, has chronic back issues. Review of Systems General: Reports: 10 or more systems reviewed and unremarkable except in HPI and below Meds/Allergies Home Medications and Allergies Home Medications Medication Instructions Recorded Confirmed Last Taken Type albuterol sulfate 90 mcg/actuation 2 puff INHALATION Q6H PRN 03/31/19 06/13/20 06/07/20 History aerosol inhaler levothyroxine 125 mcg tablet 125 mcg PO DAILY 03/31/19 06/13/20 06/07/20 History simvastatin 20 mg tablet 20 mg PO DAILY 03/31/19 06/13/20 06/06/20 History acetaminophen 500 mg tablet 500 mg PO Q6H PRN 05/15/19 06/13/20 Unknown History aspirin 81 mg tablet,delayed 81 mg PO DAILY 05/15/19 06/13/20 06/06/20 History release omeprazole 20 mg capsule,delayed 20 mg PO DAILY cap 05/15/19 06/13/20 06/07/20 History release amitriptyline 100 mg tablet 50 mg PO DAILY tab 11/25/19 06/13/20 06/06/20 History lisinopril 40 mg tablet 40 mg PO DAILY 11/25/19 06/13/20 06/07/20 History gabapentin 300 mg capsule 300 mg PO TID #90 cap 03/15/20 06/13/20 06/07/20 Rx hydrocodone 5 mg-acetaminophen 325 1 tab PO BID PRN 7 Days #14 tab 03/15/20 06/13/20 Unknown Rx mg tablet Allergies Allergy/AdvReac Type Severity Reaction Status Date / Time No Known Allergies Allergy Verified 03/15/20 11:06 Current Medications Current Medications Generic Name Dose Route Start Last Admin Trade Name Freq PRN Reason Stop Dose Admin Hydrocodone Bitart/Acetaminophen 1 tab 06/12/20 18:36 06/13/20 09:23 Hydrocodone-Acetaminophen 5-325 Mg Tablet PO 1 tab Q8H PRN Administration MODERATE TO SEVERE PAIN Albuterol/Ipratropium 3 ml 06/12/20 21:00 06/13/20 08:57 Ipratropium-Albuterol 3 Ml Neb INHALATION Not Given Q6H.RESPIRATORY CHRYSTAL Budesonide 0.5 mg 06/13/20 09:00 06/13/20 08:56 Budesonide 0.5 Mg/2 Ml Neb INHALATION Not Given BID.RESPIRATORY CHRYSTAL Famotidine 20 mg 06/12/20 18:15 06/13/20 05:46 Famotidine 20 Mg/2 Ml Inj IVP 20 mg Q12H CHRYSTAL Administration Heparin Sodium (Beef Lung) 5,000 unit 06/12/20 18:45 06/13/20 05:46 Heparin 5,000 Unit/Ml Inj 1 Ml SUBCUT 5,000 unit Q12H CHRYSTAL Administration Piperacillin Sod/Tazobactam 50 mls @ 12.5 mls/hr 06/12/20 19:00 06/13/20 11:35 Sod 3.375 gm/ Sodium Chloride IV 12.5 mls/hr Q8H CHRYSTAL Administration Protocol Sodium Chloride 1,000 mls @ 50 mls/hr 06/12/20 18:45 06/12/20 22:16 Sodium Chloride 0.9% IV 50 mls/hr .Q20H CHRYSTAL Administration Vancomycin/PEG/NADA/Lysine/Water 1,500 mg in 300 mls @ 200 mls/hr 06/12/20 22:30 06/13/20 00:51 Vancocin IV Infused Q24H CHRYSTAL Infusion PFSH Acute PFSH: Medical History Cervical spondylosis with radiculopathy Chronic indwelling Moscoso catheter COPD (chronic obstructive pulmonary disease) Dyslipidemia Hypothyroid Parkinson disease Polyneuropathy, peripheral sensorimotor axonal Spondylolisthesis, lumbar region Urethral stricture Urinary retention Surgical History History of back surgery [facility], [place] Lumbar decompression History of cervical spinal surgery Dr. Rizo 06/27/18 C5-C6 anterior cervical discectomy/fusion. History of tonsillectomy Hx of knee surgery Family History Father , at age 75 Diabetes Mother , at age 102 Glaucoma Social History Smoking and tobacco status: former smoker Second hand smoke exposure: No Alcohol intake: never Household members: friend(s) Marital status: Current occupational status: retired History of recent travel: No Vitals/I&O/Wt Last Vital Signs Temp 98.1 F 06/13/20 12:00 Pulse 89 06/13/20 12:00 Resp 17 06/13/20 12:00 BP 111/74 06/13/20 12:00 Pulse Ox 93 06/13/20 08:55 06/12/20 06/13/20 06/13/20 22:59 06:59 14:59 Intake Total 350 / 350 470 / 470 Output Total 300 / 1050 750 / 1050 800 / 800 Balance -300 / -700 -400 / -700 -330 / -330 Weight last 48 hrs Weight 220 lb 11.2 oz Weight 219 lb 8 oz Physical Exam Narrative: EXAM NARRATIVE: HEENT: Normocephalic Eye: Sclera /conjunctiva normal Abdomen: Soft to palpation Neurological: Oriented to place person and time Skin: Intact, no lesions appreciated on gross exam Musculoskeletal: Left ankle has edema and tenderness and hyper extension, limited mobility of the left ankle. There is a 3 x 3 cm ulcer on the posterior aspect of the left heel with mild surrounding erythema and minimal necrotic tissue. Urinary Catheter Management^: Moscoso: Cath Placed During This Visit: yes Urinary Catheter Date of Insertion: 06/12/20 Urinary Catheter Time of Insertion: 20:00 Data Micro: Micro: Microbiology 06/12/20 18:42 Blood Culture - Pr eliminary Blood SPECIMEN [facility] JENNY 06/12/20 18:36 Blood Culture - Pr eliminary Blood SPECIMEN [facility] A&P Assessment and plan (1) Left tibial fracture: Obtain 2 view x-ray left foot. X-rays had shown old left tibial fracture. I am not sure if that is contributing to his limited mobility of the left ankle. Worthwhile considering an orthopedic consult Status: Acute (2) Ulcer of left foot: 3 x 3 cm ulcer on the left heel with mild erythema and minimal necrotic tissue. MRI left foot on 06/12/2020 did not any evidence of osteomyelitis Duplex studies 06/13/2020: No evidence of stenosis Apply Santyl cream with once a day dressing change Status: Acute Coding Level of Care Code Acute Local Government Legislator for [facility] Fwd Diagnoses Left tibial fracture S82.202A Ulcer of left foot L97.529
[2020-06-13 15:36] LABS: Free T4 Free Thyroxine 0.85 ng/dL (0.82-1.77); T3 Free 1.5 PG/ML (2.0-4.4)
[2020-06-13] MEDS: ferrous gluconate 324 mg Tablet PO (17:59)
--- NOTE | 2020-06-13 18:05 | USCV_ITS ---
Manoloember Kishan Age: 80 Gender: M : 1940 Exam Date: 06/13/2020 10:10 Ordering Phys: Chavo Mckay MD Technologist: Radha Sotelo Exam Location: [facility] [place] Indication: H/O Pulmonary HTN and diastolic dysfunction BP: / HR: Rhythm: Sinus Technical Quality: MEASUREMENTS (Male / Female) Normal Values FINDINGS Left Ventricle Right Ventricle Right Atrium Left Atrium Mitral Valve Aortic Valve Tricuspid Valve Pulmonic Valve Pericardium Aorta CONCLUSIONS Very limited echo nearly impossible to interpret due to poor image quality, however appear to be normal left ventricle function without pericardial effusion. Estimated ejection fraction is at least 55%. Milly Jaimes MD (Electronically Signed) Final Date: 13 June 2020 14:19 S
--- NOTE | 2020-06-13 18:48 | USR_ITS ---
PROCEDURE INFORMATION: Exam: US Duplex Lower Extremity Arteries Exam date and time: 06/13/2020 10:45 AM Age: 80 years old Clinical indication: Other: Ulceration left heel; Additional info: R/O pad TECHNIQUE: Imaging protocol: Real-time ultrasound scan of the arteries of the bilateral lower extremities with 2-D horowitz scale, color Doppler flow and spectral waveform analysis. Images documented and saved. COMPARISON: CT foot LT wo con* [id number] 06/12/2020 7:47 PM FINDINGS: Right common femoral artery: No occlusion or significant stenosis. Normal waveform. Right superficial femoral artery: No occlusion or significant stenosis. Normal waveform. Right popliteal artery: No occlusion or significant stenosis. Normal waveform. Right calf/foot arteries: No occlusion or significant stenosis in the visualized arteries. Normal waveforms. Dorsalis pedis artery is patent. Left common femoral artery: No occlusion or significant stenosis. Normal waveform. Left superficial femoral artery: No occlusion or significant stenosis. Normal waveform. Left popliteal artery: No occlusion or significant stenosis. Normal waveform. Left calf/foot arteries: No occlusion or significant stenosis in the visualized arteries. Normal waveforms. Dorsalis pedis artery is patent. US/[place] [id number] IMPRESSION: Negative for clinically significant stenosis
[2020-06-13] MEDS: amitriptyline 25 mg Tablet 50 MG PO (21:25)
[2020-06-13] MEDS: gabapentin 300 mg Capsule PO (21:25)
[2020-06-13] MEDS: vancomycin 1,500 MG/300 ML PIGGYBACK 200 MG IV (22:51)
[2020-06-14] VITALS (9 sets, daily range): BP systolic 90–127; BP diastolic 59–71; PULSE 86–93; RESP 17–18; TEMP 36.9–37.4; O2SAT 91–95
[2020-06-14] MEDS: piperacillin-tazobactam 3.375 GM in sodium chloride 0.9% (plus) 50 ML IV ×3 (02:43→18:23)
[2020-06-14] MEDS: levothyroxine 125 mcg Tablet PO (05:59)
[2020-06-14] MEDS: famotidine 20 mg/2 mL INJ IVP ×2 (06:02→18:25)
--- NOTE | 2020-06-14 06:44 | PC.NURSE ---
Patient refused his heparin dose this morning stating I do not want that shot in my stomach. This nurse educated patient on the medication and the importance of it with patient verbalizing understanding stating I still do not want it.
[2020-06-14] MEDS: gabapentin 300 mg Capsule PO ×3 (09:08→21:15)
[2020-06-14] MEDS: ferrous gluconate 324 mg Tablet PO ×2 (09:08→18:24)
[2020-06-14] MEDS: HYDROcodone-acetaminophen 5-325 mg Tablet 1 TAB PO (09:08)
[2020-06-14] MEDS: atorvastatin 40 mg Tablet 20 MG PO (09:08)
[2020-06-14] MEDS: collagenase oint 30 gm 1 APPLIC TOPICAL (09:08)
[2020-06-14] MEDS: aspirin 81 mg EC Tablet PO (09:08)
--- NOTE | 2020-06-14 16:12 | PM.PN ---
Subjective Subjective: Interval history: No acute events overnight. Patient has remained hemodynamically stable and afebrile. Denies any nausea, vomiting, headache. Complaining of foot pain. Vitals/I&O/Wt Last Vital Signs Temp 98.4 F 06/14/20 15:09 Pulse 91 06/14/20 15:09 Resp 18 06/14/20 15:09 BP 94/60 06/14/20 15:09 Pulse Ox 91 06/14/20 15:09 06/14/20 06/14/20 06/14/20 06:59 14:59 22:59 Intake Total 300 / 1791.667 170 / 170 Output Total 2250 / 3050 Balance -1950 / -1258.333 170 / 170 Weight last 48 hrs Weight 102.376 kg Weight 100.108 kg Weight 99.564 kg Physical Exam Narrative: EXAM NARRATIVE: General: No acute distress, AO x3 HEENT: PERRLA, pupils bilaterally equal and reactive Chest: Normal vesicular breath sounds, no added sounds, equal good air entry bilaterally CVS: S1-S2 regular, no murmurs, no tachycardia, no gallops, no rubs Abdomen: Soft, nontender, no organomegaly, bowel sounds present Neuro: No focal deficits, no facial deformity, AO x3, power 5/5 in all limbs Extremities: Miranda size ulcers present at the heel of left foot with surrounding sloughing present, unhealthy white contact mildly foul-smelling base present, no bleeding grossly seen. Urinary Catheter Management^: Moscoso: Cath Placed During This Visit: yes Reason for Continuing Indwelling Catheter: Chronic Indwelling Urinary Catheter on Admission Urinary Catheter Date of Insertion: 06/12/20 Urinary Catheter Time of Insertion: 20:00 Data : 06/13/20 07:05 06/13/20 07:05 Micro: Microbiology 06/12/20 18:45 Gram Stain - Final Leg - Left Wound Culture - Preliminary 06/12/20 23:15 Urine Culture - Preliminary Urine Catheterized 06/12/20 18:42 Blood Culture - Preliminary Blood NEGATIVE TO DATE 06/12/20 18:36 Blood Culture - Preliminary Blood NEGATIVE TO DATE 06/12/20 18:45 MRSA Culture - Final Nose Laboratory Results WBC 6.2 10^3/uL (4.0-10.0) 06/13/20 07:05 RBC 3.86 10^6/uL (4.1-5.3) L 06/13/20 07:05 Hgb 11.8 g/dL (11.7-16.6) 06/13/20 07:05 Hct 36.6 % (42.0-52.0) L 06/13/20 07:05 MCV 94.8 fL (80-94) H 06/13/20 07:05 MCH 30.6 pg (28.0-34.0) 06/13/20 07:05 MCHC 32.2 g/dL (30.0-36.0) 06/13/20 07:05 RDW 14.6 % (12.1-15.1) 06/13/20 07:05 Plt Count 192 10^3/cmm (130-400) 06/13/20 07:05 MPV 10.0 fL (7.4-10.4) 06/13/20 07:05 Neut % (Auto) 65.7 % 06/13/20 07:05 Lymph % (Auto) 19.8 % 06/13/20 07:05 [place] % (Auto) 8.3 % 06/13/20 07:05 Eos % (Auto) 5.3 % 06/13/20 07:05 Baso % (Auto) 0.6 % 06/13/20 07:05 Neut # (Auto) 4.05 10^3/uL (1.8-7.7) 06/13/20 07:05 Lymph # (Auto) 1.2 10^3/uL (0.8-4.8) 06/13/20 07:05 [place] # (Auto) 0.5 10^3/uL (0.2-0.9) 06/13/20 07:05 Eos # (Auto) 0.3 10^3/uL (0.0-0.8) 06/13/20 07:05 Baso # (Auto) 0.0 10^3/uL (0.0-0.1) 06/13/20 07:05 Nucleated RBC % (auto) 0 % 06/13/20 07:05 Nucleated RBCs # 0.0 /100WBC 06/13/20 07:05 ESR 92 mm/hr (0-10) H 06/12/20 18:36 Sodium 140 mmol/L (136-145) 06/13/20 07:05 Potassium 4.0 mmol/L (3.5-5.1) 06/13/20 07:05 Chloride 110 mmol/L (98-107) H 06/13/20 07:05 Carbon Dioxide 20 mmol/L (22-29) L 06/13/20 07:05 Anion Gap 14.0 (5-19) 06/13/20 07:05 BUN 18 mg/dL (8-23) 06/13/20 07:05 Creatinine 1.5 mg/dL (0.7-1.2) H 06/13/20 07:05 GFR Calculation Not Reportable 06/13/20 07:05 Glucose 89 mg/dL (65-115) 06/13/20 07:05 Estimat Average Glucose 114 06/13/20 07:05 Hemoglobin A1c 5.6 % (4.0-6.0) 06/13/20 07:05 Calculated Osmolality 291 mOsm/kg (285-295) 06/13/20 07:05 Lactic Acid 0.7 mmol/L (0.5-2.2) 06/13/20 07:05 Calcium 9.0 mg/dL (8.5-10.5) 06/13/20 07:05 Phosphorus 2.2 mg/dL (2.5-4.5) L 06/13/20 07:05 Magnesium 1.4 mg/dL (1.7-2.3) L 06/13/20 07:05 Iron 39 ug/dL (59-158) L 06/12/20 18:36 TIBC 142 mcg/dl 06/12/20 18:36 % Saturation 27.4 % (20-50) 06/12/20 18:36 Unsat Iron Binding 103 ug/dL (112-347) L 06/12/20 18:36 Ferritin 322 ng/mL (30-400) 06/13/20 07:05 Total Bilirubin 0.3 mg/dL (0.15-1.2) 06/13/20 07:05 AST 19 U/L (0-40) 06/13/20 07:05 ALT 8 U/L (0-41) 06/13/20 07:05 Alkaline Phosphatase 78 IU/L (40-130) 06/13/20 07:05 Creatine Kinase 33 U/L (39-308) L 06/13/20 07:05 C-Reactive Protein 94.0 mg/L (0.0-4.9) H 06/13/20 07:05 Total Protein 5.5 g/dL (6.6-8.7) L 06/13/20 07:05 Albumin 2.5 g/dL (3.5-5.2) L 06/13/20 07:05 Globulin 3.0 g/dL (1.3-4.6) 06/13/20 07:05 Triglycerides 129 mg/dL (0-150) 06/13/20 07:05 Cholesterol 143 mg/dL (0-200) 06/13/20 07:05 LDL Cholesterol, Calc 80 mg/dL (50-129) 06/13/20 07:05 Total VLDL Cholesterol 26 mg/dL (0-30) 06/13/20 07:05 HDL Cholesterol 37 mg/dL (60-100) L 06/13/20 07:05 Cholesterol/HDL Ratio 3.86 mg/dL (1.0-5.00) 06/13/20 07:05 Procalcitonin 0.35 ng/mL (0-0.5) 06/12/20 18:36 TSH 35.83 uIU/mL (0.27-4.20) H 06/12/20 18:36 Free T4 0.85 ng/dL (0.82-1.77) 06/13/20 07:05 Free T3 1.5 PG/ML (2.0-4.4) L 06/13/20 07:05 Urine Color Yellow (Yellow) 06/12/20 23:15 Urine Appearance Clear (CLEAR) 06/12/20 23:15 Urine pH 5 (5-7) 06/12/20 23:15 Ur Specific [place] 1.015 (1.005-1.030) 06/12/20 23:15 Urine Protein Neg (Negative) 06/12/20 23:15 Urine Glucose (UA) 1+ (Normal) 06/12/20 23:15 Urine Ketones Negative (Negative) 06/12/20 23:15 Urine Blood 2+ (Negative) H 06/12/20 23:15 Urine Nitrate Negative (Negative) 06/12/20 23:15 Urine Bilirubin Neg (Negative) 06/12/20 23:15 Urine Urobilinogen Norm mg/dL (Negative) 06/12/20 23:15 Ur Leukocyte Esterase 1+ (Negative) H 06/12/20 23:15 Urine RBC 5-10 /hpf (0-2) H 06/12/20 23:15 Urine WBC 15-25 /hpf (0-5) H 06/12/20 23:15 Ur Squamous Epith Cells 15-25 /hpf (0-5) H 06/12/20 23:15 Amorphous Sediment Not Reportable 06/12/20 23:15 Urine Bacteria Trace /hpf (NONE) 06/12/20 23:15 Ur Random Sodium 177 mmol/L 06/12/20 23:15 Ur Random Potassium 19 mmol/L 06/12/20 23:15 Ur Random Chloride 167 mmol/L 06/12/20 23:15 Urine Creatinine 58 mg/dL (39-259) 06/12/20 23:15 Random Vancomycin 15.2 ug/mL (20.0-40.0) L 06/12/20 21:02 Impressions Chest X-Ray 06/12/20 18:36 IMPRESSION: Patchy opacity in the right upper lobe compatible with pneumonia. Foot CT 06/12/20 18:36 IMPRESSION: 1. A heel ulcer is noted. No underlying osseous destruction is seen to suggest osteomyelitis. 2. There is an age-indeterminate, nondisplaced fracture involving the posterior malleolus of the distal tibia. 3. There is a probable acute or subacute, oblique fracture involving the distal metadiaphysis of the fibula. 4. Dorsal subcutaneous edema is suspicious for cellulitis. Radiation Dose CTDIVOL = (mGy): DLP = 177.58 (mGy-cm) Foot X-Ray 06/13/20 12:38 IMPRESSION: 1. No acute bone abnormalities 2. Unremarkable soft tissues Duplex Scan Lower Extremity Artery 06/13/20 18:48 IMPRESSION: Negative for clinically significant stenosis. A&P Assessment and plan (1) Ulcer of left foot: Status: Acute (2) Acute kidney injury superimposed on CKD: Status: Acute (3) CKD (chronic kidney disease): Status: Acute (4) Urethral stricture: Status: Acute Qualifiers: Urethral stricture type: post-procedural Urethral stricture sex-location: male urethra-overlapping sites Qualified Code(s): N99.116 - Postprocedural urethral stricture, male, overlapping sites (5) Chronic indwelling Moscoso catheter: Status: Acute (6) COPD (chronic obstructive pulmonary disease): Status: Acute (7) Hypothyroid: Status: Acute (8) Left tibial fracture: Status: Acute Additional A&P Information 78-year-old man with past medical history of CKD, chronic indwelling Moscoso catheter for history of prostate cancer transferred from outside hospital for podiatry and urology consultation for heel ulcer and replacement of Moscoso catheter. Very limited labs from outside hospital available for now. Will request for further labs. Left heel ulcer: ESR and CRP elevated though CT foot without contrast not revealing any osteomyelitis. On review from cultures from [facility] apparently patient did not have a blood culture or a wound culture done there. MRSA culture is negative. Patient had bedside debridement done yesterday. Stop vancomycin but continue Zosyn for now. MRI for tomorrow to rule out osteomyelitis as suspicion is high. We will also plan for a PICC line. MRSA swab results are awaited. Wound care as per surgery. [place] 5 mg every 8 hour as needed. Tibial fracture: Care discussed with Dr. Johnson from orthopedics. He would like to see patient in his office on discharge. Moscoso catheter: Appreciate urology help. Catheter placed yesterday after dilation of distal urethral stricture. Monitor urine output. UA and urine culture post Moscoso placement. TUAN on CKD: Resolved. Stable creatinine 1.5. Not sure what patient's baseline creatinine is. Stop IV fluids as patient is taking orally well. COPD: Nebulization as needed. Oxygen supplementation keeping saturation over 90%. No acute exacerbation for now. Hypertension: Goal blood pressure less than 140/90 mmHg. Blood pressure on the softer side so we will continue to hold off on lisinopril. Mean arterial pressure over 60. Continue other chronic medications. Will change medication as per the clinical picture. Start patient on oral iron supplementation for iron deficiency anemia. Increased dose of levothyroxine to 150 mcg daily CODE STATUS: Patient would like to be full code. Heparin 5000 every 12. Cardiac diet. Physical therapy evaluation appreciated. Because of generalized deconditioning patient would benefit from SNF placement. Will consult case management. Attestations Medical Necessity Statement*: Requires further hospitalization for management of left heel ulcer, possible osteomyelitis while safe discharge planning is sought. Time Spent in Patient Care: Greater than 35 minutes (>than 50% of time spent in counselling and/or direct pt care on unit). Coding Level of Care Code Acute Cavity Pump Operator for Chg Fwd Diagnoses Ulcer of left foot L97.529 Acute kidney injury superimposed on CKD N17.9; N18.9 CKD (chronic kidney disease) N18.9 Urethral stricture N99.116 Urethral stricture type: post-procedural Urethral stricture sex-location: male urethra-overlapping sites Chronic indwelling Moscoso catheter Z97.8 COPD (chronic obstructive pulmonary disease) J44.9 Hypothyroid E03.9 Left tibial fracture S82.202A
--- NOTE | 2020-06-14 16:13 | P.PN_ITS ---
Subjective Subjective: Interval history: Patient still has some left leg pain but denies any fevers or chills, feels slightly better Vitals/I&O/Wt Last Vital Signs Temp 98.4 F 06/14/20 15:09 Pulse 91 06/14/20 15:09 Resp 18 06/14/20 15:09 BP 94/60 06/14/20 15:09 Pulse Ox 91 06/14/20 15:09 06/14/20 06/14/20 06/14/20 06:59 14:59 22:59 Intake Total 300 / 1791.667 170 / 170 Output Total 2250 / 3050 Balance -1950 / -1258.333 170 / 170 Weight last 48 hrs Weight 225 lb 11.2 oz Weight 220 lb 11.2 oz Weight 219 lb 8 oz Physical Exam Narrative: EXAM NARRATIVE: Left left foot: Warm to touch, tender, and improved range of movement, wound has less necrotic tissue today Urinary Catheter Management^: Moscoso: Cath Placed During This Visit: yes Reason for Continuing Indwelling Catheter: Chronic Indwelling Urinary Catheter on Admission Urinary Catheter Date of Insertion: 06/12/20 Urinary Catheter Time of Insertion: 20:00 Data : 06/13/20 07:05 06/13/20 07:05 Micro: Microbiology 06/12/20 18:45 Gram Stain - Final Leg - Left Wound Culture - Preliminary 06/12/20 23:15 Urine Culture - Preliminary Urine Catheterized 06/12/20 18:42 Blood Culture - Preliminary Blood NEGATIVE TO DATE 06/12/20 18:36 Blood Culture - Preliminary Blood NEGATIVE TO DATE 06/12/20 18:45 MRSA Culture - Final Nose A&P Assessment and plan (1) Left tibial fracture: X-ray left foot did not show any acute fractures Status: Acute (2) Ulcer of left foot: 3 x 3 cm ulcer on the left heel with mild erythema and minimal necrotic tissue improved on Santyl CT left foot did not show any evidence of osteomyelitis, will obtain MRI tomorrow. If MRI does not show any evidence of osteomyelitis, plan for IV antibiotics for 2 to 3 weeks for soft tissue infection, if there is osteomyelitis plan for 6 weeks of IV antibiotics PICC line placement Apply Santyl cream with once a day dressing change with subsequent follow-up in wound care clinic Status: Acute Attestations Medical Necessity Statement*: Cellulitis left foot requiring IV antibiotics Coding Level of Care Code Acute Parking Control Officer for Chg Fwd Diagnoses Left tibial fracture S82.202A Ulcer of left foot L97.529
[2020-06-14] MEDS: acetaminophen 325 mg Tablet 650 MG PO (16:41)
[2020-06-14 18:01] LABS: Procalcitonin 0.28 ng/mL (0-0.5)
[2020-06-14] MEDS: amitriptyline 25 mg Tablet 50 MG PO (21:15)
[2020-06-15] MEDS: piperacillin-tazobactam 3.375 GM in sodium chloride 0.9% (plus) 50 ML IV ×2 (03:42→16:24)
[2020-06-15 04:30] VITALS: BP 103/69; PULSE 89; RESP 18; TEMP 36.7; O2SAT 96
[2020-06-15 05:57] LABS: Basophils % 0.5 %; Eosinophils # 0.4 10^3/uL (0.0-0.8); Eosinophils % 6.9 %; Hematocrit 39.9 % (42.0-52.0); Hemoglobin 12.4 g/dL (11.7-16.6); Lymphocytes # 1.3 10^3/uL (0.8-4.8); Lymphocytes % 21.2 %; Mean Corpuscular HGB Conc 31.1 g/dL (30.0-36.0); Mean Corpuscular Volume 99.8 fL (80-94); Mean Platelet Volume 9.5 fL (7.4-10.4); Monocytes # 0.6 10^3/uL (0.2-0.9); Monocytes % 9.3 %; Neutrophils # 3.78 10^3/uL (1.8-7.7); Neutrophils % 61.6 %; Nucleated Red Blood Cells % 0 %; Platelet Count 224 10^3/cmm (130-400); Red Cell Distribution Width 15.2 % (12.1-15.1); White Blood Count 6.1 10^3/uL (4.0-10.0)
[2020-06-15 06:16] LABS: Alanine Aminotransferase 13 U/L (0-41); Albumin Level 2.6 g/dL (3.5-5.2); Alkaline Phosphatase 89 IU/L (40-130); Aspartate Amino Transferase 21 U/L (0-40); Blood Urea Nitrogen 18 mg/dL (8-23); Calcium 9.1 mg/dL (8.5-10.5); Carbon Dioxide 24 mmol/L (22-29); Chloride 106 mmol/L (98-107); Globulin 3.4 g/dL (1.3-4.6); Glucose 90 mg/dL (65-115); Osmolality Calculated 285 mOsm/kg (285-295); Sodium 137 mmol/L (136-145); Total Bilirubin 0.2 mg/dL (0.15-1.2)
[2020-06-15 06:18] LABS: Anion Gap 11.4 (5-19); Potassium 4.4 mmol/L (3.5-5.1)
[2020-06-15] MEDS: heparin 5,000 unit/mL INJ 1 mL 5000 UNIT SUBCUT ×2 (06:31→18:15)
[2020-06-15] MEDS: levothyroxine 150 mcg Tablet PO (06:31)
[2020-06-15 07:14] VITALS: BP 113/71; PULSE 90; RESP 17; TEMP 36.7; O2SAT 90
[2020-06-15 08:08] VITALS: PULSE 90; RESP 16; O2SAT 94
[2020-06-15] MEDS: gabapentin 300 mg Capsule PO ×3 (08:26→21:33)
[2020-06-15] MEDS: ferrous gluconate 324 mg Tablet PO ×2 (08:27→17:34)
[2020-06-15] MEDS: aspirin 81 mg EC Tablet PO (08:27)
[2020-06-15] MEDS: collagenase oint 30 gm 1 APPLIC TOPICAL (08:27)
[2020-06-15] MEDS: atorvastatin 40 mg Tablet 20 MG PO (08:27)
--- NOTE | 2020-06-15 10:02 | PC.CHAP ---
Pastoral Care Encounter/Spiritual Assessment Type of Contact [] Declined candy maker visit [] Patient/Family/Request visit [] Outpatient visit [] Follow-up visit [] Physician referral [] Code/Alert [x] Routine visit [] Staff referral [] Actively dying [] Patient sleeping [] Family support [] [] Out of room [] Palliative care [] [] Receiving care in room [] Pre-surgical visit [] Trauma [] Long length of stay [] ICU visit [] Other: Relational/Emotional Strength [x] Patient feels connected with others/family/visitors/staff [] Distress [] Loneliness/isolation [] Abandonment Spirituality of Patient [] Person of Edel [] Attends Druze of their Edel [] Believes in Prayer [] Reads Bible or Roman Catholic materials [x] There are Spiritual issues to be addressed Production Broacher Interventions [] Prayer [x] Active listening [x] Non-anxious presence [x] Spiritual/emotional support [] Crisis/trauma care [] Spiritual counseling [] Bereavement support [] Provided bereavement packet [] Provided Bible/devotional materials [] Provided toy/stuffed animal, coloring book to patient or family member [] Provided Communion [] Anointing/[place] [] Salvation [x] Completed spiritual assessment [] Other: Impact on Illness or Injury [] Angry [] Fearful [] Anxious [] Often cries [] Exhaustion [] Unable to work [] Unable to attend episcopal [x] Unable to walk/stand [] Unable to read [] Unable to drive [] Unable to eat/drink [] Unable to sleep [] Unable to be with family [] Patient intubated [] Other: Summary Pt lives with friend so he does have limited outside support. He has several adult children all living in various states and not close to [place]. Pt stated he spent a great deal of his adult life working, traveling and living in different areas of the country. His current injury is due to a fall he took in February on the ice. A sore developed on his heel and it is so deep it goes to the bone. This has left him with limited mobility. He reports since he has been in hospital, the sore is beginning to heal and he hopes it will continue to do so in order for him to move freely again. Time spent with patient
[2020-06-15] MEDS: famotidine 20 mg/2 mL INJ IVP ×2 (10:06→20:54)
--- NOTE | 2020-06-15 10:56 | P.PN_ITS ---
Subjective Subjective: Interval history: No acute events overnight. Patient states he is feeling better. He is awake alert in bed denies any nausea, vomiting, headache. Has remained hemodynamically stable and afebrile overnight. Vitals/I&O/Wt Last Vital Signs Temp 98.0 F 06/15/20 07:14 Pulse 90 06/15/20 08:08 Resp 16 06/15/20 08:08 BP 113/71 06/15/20 07:14 Pulse Ox 94 06/15/20 08:08 06/14/20 06/15/20 06/15/20 22:59 06:59 14:59 Intake Total 100 / 270 Output Total 900 / 900 675 / 1575 Balance -800 / -630 -675 / -1305 Weight last 48 hrs Weight 100.97 kg Weight 102.376 kg Physical Exam Narrative: EXAM NARRATIVE: General: No acute distress, AO x3 HEENT: PERRLA, pupils bilaterally equal and reactive Chest: Normal vesicular breath sounds, no added sounds, equal good air entry bilaterally CVS: S1-S2 regular, no murmurs, no tachycardia, no gallops, no rubs Abdomen: Soft, nontender, no organomegaly, bowel sounds present Neuro: No focal deficits, no facial deformity, AO x3, power 5/5 in all limbs Extremities: Miranda size ulcers present at the heel of left foot with surrounding sloughing present, unhealthy white contact mildly foul-smelling base present, no bleeding grossly seen. Urinary Catheter Management^: Moscoso: Cath Placed During This Visit: yes Reason for Continuing Indwelling Catheter: Chronic Indwelling Urinary Catheter on Admission Urinary Catheter Date of Insertion: 06/12/20 Urinary Catheter Time of Insertion: 20:00 Data : 06/15/20 05:25 06/15/20 05:25 Micro: Microbiology 06/12/20 18:45 Gram Stain - Final Leg - Left Wound Culture - Preliminary 06/12/20 23:15 Urine Culture - Final Urine Catheterized A&P Assessment and plan (1) Ulcer of left foot: Status: Acute (2) Acute kidney injury superimposed on CKD: Status: Acute (3) CKD (chronic kidney disease): Status: Acute (4) Urethral stricture: Status: Acute Qualifiers: Urethral stricture sex-location: male urethra-overlapping sites Urethral stricture type: post-procedural Qualified Code(s): N99.116 - Postprocedural urethral stricture, male, overlapping sites (5) Chronic indwelling Moscoso catheter: Status: Acute (6) COPD (chronic obstructive pulmonary disease): Status: Acute (7) Hypothyroid: Status: Acute (8) Left tibial fracture: Status: Acute Additional A&P Information 78-year-old man with past medical history of CKD, chronic indwelling Moscoso catheter for history of prostate cancer transferred from outside hospital for podiatry and urology consultation for heel ulcer and replacement of Moscoso catheter. Very limited labs from outside hospital available for now. Will request for further labs. Left heel ulcer: ESR and CRP elevated though CT foot without contrast not revealing any osteomyelitis. On review from cultures from [facility] patient did not have a blood culture or a wound culture done there. MRSA culture is negative. Continue Zosyn for now. Patient awaiting MRI. PICC line to be placed today. Plan for IV antibiotics for either 3 or 6 weeks depending on results of the MRI. Most likely patient will go home on once a day vancomycin. Will consult pharmacy for vancomycin dosage. Wound care as per surgery. [place] 5 mg every 8 hour as needed. Tibial fracture: Care discussed with Dr. Johnson from orthopedics. He would like to see patient in his office on discharge. Urinary stricture/Moscoso catheter: Appreciate urology help. Catheter placed yesterday after dilation of distal urethral stricture. Monitor urine output. UA and urine culture post Moscoso placement. TUAN on CKD: Creatinine mildly worse to 1.9 today. Not sure what patient's baseline creatinine is. Start patient on normal saline 50 cc/h. COPD: Nebulization as needed. Oxygen supplementation keeping saturation over 90%. No acute exacerbation for now. Hypertension: Goal blood pressure less than 140/90 mmHg. Blood pressure on the softer side so we will continue to hold off on lisinopril. Mean arterial pressure over 60. Continue other chronic medications. Will change medication as per the clinical picture. Start patient on oral iron supplementation for iron deficiency anemia. Increased dose of levothyroxine to 150 mcg daily CODE STATUS: Patient would like to be full code. Heparin 5000 every 12. Cardiac diet. Physical therapy evaluation appreciated. Because of generalized deconditioning patient would benefit from SNF placement. Will consult case management. Attestations Medical Necessity Statement*: Patient requires further hospitalization for management of left heel ulcer, possible osteomyelitis while safe discharge planning is sought. Time Spent in Patient Care: Greater than 35 minutes (>than 50% of time spent in counselling and/or direct pt care on unit) . Coding Level of Care Code Acute Coating Inspector for Chg Fwd Diagnoses Ulcer of left foot L97.529 Acute kidney injury superimposed on CKD N17.9; N18.9 CKD (chronic kidney disease) N18.9 Urethral stricture N99.116 Urethral stricture sex-location: male urethra-overlapping sites Urethral stricture type: post-procedural Chronic indwelling Moscoso catheter Z97.8 COPD (chronic obstructive pulmonary disease) J44.9 Hypothyroid E03.9 Left tibial fracture S82.202A
[2020-06-15 11:09] VITALS: BP 102/68; PULSE 94; RESP 17; TEMP 37.2; O2SAT 90
[2020-06-15] MEDS: sodium chloride 0.9% 1,000 ML 75 ML IV (11:26)
--- NOTE | 2020-06-15 14:24 | PC.NURSE ---
MRI Pt went down for MRI of Left foot.
--- NOTE | 2020-06-15 16:17 | MRR_ITS ---
PROCEDURE INFORMATION: Exam: MR Left Lower Extremity Other Than Joint Without and With Contrast; Foot Exam date and time: 06/15/2020 3:02 PM Age: 80 years old Clinical indication: Pain; Foot; Left; Additional info: Possible osteo TECHNIQUE: Imaging protocol: MR of the Left lower extremity without and with intravenous contrast. Exam focused on the foot. Contrast material: MULTIHANCE; Contrast volume: 20 ml; Contrast route: INTRAVENOUS (IV); COMPARISON: CT foot LT wo con* [id number] 06/12/2020 7:47 PM FINDINGS: There are subacute to chronic appearing nondisplaced fractures of the lateral and posterior malleoli. No acute fracture is identified. There is no dislocation. No acute bone marrow edema is appreciated. Mild degenerative changes are noted. There are no erosive or destructive changes. No lytic or blastic lesion is seen. There is a small amount of loculated fluid in the tibiotalar, posterior subtalar and hallux metatarsophalangeal joints. There is diffuse soft tissue swelling and subcutaneous edema with associated enhancement and overlying skin thickening. There is a large soft tissue ulceration along the posterolateral aspect of the calcaneus with a small amount of subjacent phlegmonous change. No organized fluid collection is identified. There is no soft tissue mass. No acute tendon or ligament injury is identified. MR/MR foot LT wo/w con [id number] IMPRESSION: 1. No MR evidence of acute osteomyelitis. 2. Subacute to chronic appearing nondisplaced fractures of the lateral and posterior malleoli. 3. Additional findings, as above.
[2020-06-15] MEDS: HYDROcodone-acetaminophen 5-325 mg Tablet 1 TAB PO (16:34)
--- NOTE | 2020-06-15 17:59 | P.PN_ITS ---
Subjective Subjective: Interval history: Still complains of pain, has decreased range of movements. Vitals/I&O/Wt Last Vital Signs Temp 98.9 F 06/15/20 11:09 Pulse 94 06/15/20 11:09 Resp 17 06/15/20 11:09 BP 102/68 06/15/20 11:09 Pulse Ox 90 06/15/20 11:09 06/15/20 06/15/20 06/15/20 06:59 14:59 22:59 Intake Total 290 / 290 Output Total 675 / 1575 575 / 575 Balance -675 / -1305 -285 / -285 Weight last 48 hrs Weight 222 lb 9.6 oz Weight 225 lb 11.2 oz Physical Exam Narrative: EXAM NARRATIVE: Left foot: Dressings dry and intact, erythema is improved, slightly improved range of movements Urinary Catheter Management^: Moscoso: Cath Placed During This Visit: yes Reason for Continuing Indwelling Catheter: Chronic Indwelling Urinary Catheter on Admission Urinary Catheter Date of Insertion: 06/12/20 Urinary Catheter Time of Insertion: 20:00 Data : 06/15/20 05:25 06/15/20 05:25 Micro: Microbiology 06/12/20 18:45 Gram Stain - Final Leg - Left Wound Culture - Preliminary 06/12/20 23:15 Urine Culture - Final Urine Catheterized A&P Assessment and plan (1) Left tibial fracture: X-ray left foot did not show any acute fractures Status: Acute (2) Ulcer of left foot: 3 x 3 cm ulcer on the left heel with mild erythema and minimal necrotic tissue improved on Santyl CT left foot did not show any evidence of osteomyelitis, will obtain MRI tomorrow. 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
[2020-06-15 19:25] VITALS: BP 105/65; PULSE 85; RESP 18; TEMP 36.9; O2SAT 93
[2020-06-15] MEDS: amitriptyline 25 mg Tablet 50 MG PO (21:33)
[2020-06-16] VITALS (8 sets, daily range): BP systolic 91–124; BP diastolic 60–77; PULSE 73–88; RESP 15–20; TEMP 36.5–36.9; O2SAT 93–99
[2020-06-16] MEDS: piperacillin-tazobactam 3.375 GM in sodium chloride 0.9% (plus) 50 ML IV ×2 (00:15→10:24)
[2020-06-16] MEDS: sodium chloride 0.9% 1,000 ML 75 ML IV (00:18)
--- NOTE | 2020-06-16 03:27 | PC.NURSE ---
INFORMATION ASSURANCE ANALYST notified this nurse at 0000 that while taking vital signs Pt's O2 sat was 87%, nurse responded to pt room and assessed pt, Pt was awakened easily, was AAO, and responded to verbal commands, HOB was raised to sitting position and Pt followed directions to deep breathe and cough, O2 sat went up to 89%, at this time nurse applied 2L oxygen via nasal cannula and PT O2 sat recovered to 94%, Lung sounds were clear but diminished, RT Chuckie was notified.
[2020-06-16] MEDS: heparin 5,000 unit/mL INJ 1 mL 5000 UNIT SUBCUT ×2 (06:13→17:45)
[2020-06-16] MEDS: levothyroxine 150 mcg Tablet PO (06:13)
--- NOTE | 2020-06-16 10:07 | XR_ITS ---
WS: [id number] Exam: XR chest 1V portable [id number] Date/Time of Exam: 06/16/2020 10:07 AM Reason For Exam: PICC PLACEMENT Comparison 06/12/2020. A right-sided PICC line is been placed and appears to end at the cavoatrial junction in good position . Again noted is infiltrate in the right upper lobe unchanged. The left lung is clear. Normal cardiom ediastinal silhouette. No pneumothorax. XR/XR chest 1V portable [id number] IMPRESSION: 1. Right-sided PICC line now ending at the cavoatrial junction in good position . 2. Focal infiltrate in the right upper lobe unchanged
[2020-06-16] MEDS: famotidine 20 mg/2 mL INJ IVP ×2 (10:17→21:14)
[2020-06-16] MEDS: atorvastatin 40 mg Tablet 20 MG PO (10:17)
[2020-06-16] MEDS: ferrous gluconate 324 mg Tablet PO ×2 (10:17→17:42)
[2020-06-16] MEDS: aspirin 81 mg EC Tablet PO (10:18)
[2020-06-16] MEDS: collagenase oint 30 gm 1 APPLIC TOPICAL (10:18)
[2020-06-16] MEDS: gabapentin 300 mg Capsule PO ×3 (10:18→21:14)
[2020-06-16 11:18] LABS: Alanine Aminotransferase 15 U/L (0-41); Albumin Level 2.7 g/dL (3.5-5.2); Alkaline Phosphatase 82 IU/L (40-130); Anion Gap 10.6 (5-19); Aspartate Amino Transferase 18 U/L (0-40); Blood Urea Nitrogen 15 mg/dL (8-23); Calcium 8.9 mg/dL (8.5-10.5); Carbon Dioxide 24 mmol/L (22-29); Chloride 107 mmol/L (98-107); Globulin 3.1 g/dL (1.3-4.6); Glucose 136 mg/dL (65-115); Osmolality Calculated 289 mOsm/kg (285-295); Potassium 3.6 mmol/L (3.5-5.1); Sodium 138 mmol/L (136-145); Total Bilirubin 0.2 mg/dL (0.15-1.2); Total Protein 5.8 g/dL (6.6-8.7)
--- NOTE | 2020-06-16 13:01 | P.PN_ITS ---
Subjective Subjective: Interval history: No events overnight. Patient denies any nausea vomiting, headache. He has remained hemodynamically stable and afebrile overnight. Patient got PICC line at this morning. Discussed in detail for and his need to take better oral intake. Patient agreed. Vitals/I&O/Wt Last Vital Signs Temp 97.7 F 06/16/20 11:38 Pulse 80 06/16/20 11:38 Resp 20 H 06/16/20 11:38 BP 118/77 06/16/20 11:38 Pulse Ox 98 06/16/20 11:38 06/15/20 06/16/20 06/16/20 22:59 06:59 14:59 Intake Total 50 / 340 1255 / 1595 268 / 268 Output Total 240 / 815 240 / 1055 Balance -190 / -475 1015 / 540 268 / 268 Weight last 48 hrs Weight 99.881 kg Weight 100.97 kg Physical Exam Narrative: EXAM NARRATIVE: General: No acute distress, AO x3 HEENT: PERRLA, pupils bilaterally equal and reactive Chest: Normal vesicular breath sounds, no added sounds, equal good air entry bilaterally CVS: S1-S2 regular, no murmurs, no tachycardia, no gallops, no rubs Abdomen: Soft, nontender, no organomegaly, bowel sounds present Neuro: No focal deficits, no facial deformity, AO x3, power 5/5 in all limbs Extremities: Miranda size ulcers present at the heel of left foot with surrounding sloughing present, unhealthy white contact mildly foul-smelling base present, no bleeding grossly seen. Urinary Catheter Management^: Moscoso: Cath Placed During This Visit: yes Reason for Continuing Indwelling Catheter: Chronic Indwelling Urinary Catheter on Admission Urinary Catheter Date of Insertion: 06/12/20 Urinary Catheter Time of Insertion: 20:00 Data : 06/15/20 05:25 06/16/20 10:56 Micro: Microbiology 06/12/20 18:45 Gram Stain - Final Leg - Left Wound Culture - Final 06/12/20 23:15 Urine Culture - Final Urine Catheterized Microbiology 06/12/20 18:45 Leg - Left Gram Stain - Final 06/12/20 18:45 Leg - Left Wound Culture - Final 06/12/20 23:15 Urine Catheterized Urine Culture - Final 06/12/20 18:42 Blood Blood Culture - Preliminary NEGATIVE TO DATE 06/12/20 18:36 Blood Blood Culture - Preliminary NEGATIVE TO DATE 06/12/20 18:45 Nose MRSA Culture - Final Laboratory Results WBC 6.1 10^3/uL (4.0-10.0) 06/15/20 05:25 RBC 4.00 10^6/uL (4.1-5.3) L 06/15/20 05:25 Hgb 12.4 g/dL (11.7-16.6) 06/15/20 05:25 Hct 39.9 % (42.0-52.0) L 06/15/20 05:25 MCV 99.8 fL (80-94) H 06/15/20 05:25 MCH 31.0 pg (28.0-34.0) 06/15/20 05:25 MCHC 31.1 g/dL (30.0-36.0) 06/15/20 05:25 RDW 15.2 % (12.1-15.1) H 06/15/20 05:25 Plt Count 224 10^3/cmm (130-400) 06/15/20 05:25 MPV 9.5 fL (7.4-10.4) 06/15/20 05:25 Neut % (Auto) 61.6 % 06/15/20 05:25 Lymph % (Auto) 21.2 % 06/15/20 05:25 [place] % (Auto) 9.3 % 06/15/20 05:25 Eos % (Auto) 6.9 % 06/15/20 05:25 Baso % (Auto) 0.5 % 06/15/20 05:25 Neut # (Auto) 3.78 10^3/uL (1.8-7.7) 06/15/20 05:25 Lymph # (Auto) 1.3 10^3/uL (0.8-4.8) 06/15/20 05:25 [place] # (Auto) 0.6 10^3/uL (0.2-0.9) 06/15/20 05:25 Eos # (Auto) 0.4 10^3/uL (0.0-0.8) 06/15/20 05:25 Baso # (Auto) 0.0 10^3/uL (0.0-0.1) 06/15/20 05:25 Nucleated RBC % (auto) 0 % 06/15/20 05:25 Nucleated RBCs # 0.0 /100WBC 06/15/20 05:25 ESR 92 mm/hr (0-10) H 06/12/20 18:36 Sodium 138 mmol/L (136-145) 06/16/20 10:56 Potassium 3.6 mmol/L (3.5-5.1) 06/16/20 10:56 Chloride 107 mmol/L (98-107) 06/16/20 10:56 Carbon Dioxide 24 mmol/L (22-29) 06/16/20 10:56 Anion Gap 10.6 (5-19) 06/16/20 10:56 BUN 15 mg/dL (8-23) 06/16/20 10:56 Creatinine 1.5 mg/dL (0.7-1.2) H 06/16/20 10:56 GFR Calculation Not Reportable 06/16/20 10:56 Glucose 136 mg/dL (65-115) H 06/16/20 10:56 Estimat Average Glucose 114 06/13/20 07:05 Hemoglobin A1c 5.6 % (4.0-6.0) 06/13/20 07:05 Calculated Osmolality 289 mOsm/kg (285-295) 06/16/20 10:56 Lactic Acid 0.7 mmol/L (0.5-2.2) 06/13/20 07:05 Calcium 8.9 mg/dL (8.5-10.5) 06/16/20 10:56 Phosphorus 2.2 mg/dL (2.5-4.5) L 06/13/20 07:05 Magnesium 1.4 mg/dL (1.7-2.3) L 06/13/20 07:05 Iron 39 ug/dL (59-158) L 06/12/20 18:36 TIBC 142 mcg/dl 06/12/20 18:36 % Saturation 27.4 % (20-50) 06/12/20 18:36 Unsat Iron Binding 103 ug/dL (112-347) L 06/12/20 18:36 Ferritin 322 ng/mL (30-400) 06/13/20 07:05 Total Bilirubin 0.2 mg/dL (0.15-1.2) 06/16/20 10:56 AST 18 U/L (0-40) 06/16/20 10:56 ALT 15 U/L (0-41) 06/16/20 10:56 Alkaline Phosphatase 82 IU/L (40-130) 06/16/20 10:56 Creatine Kinase 33 U/L (39-308) L 06/13/20 07:05 C-Reactive Protein 94.0 mg/L (0.0-4.9) H 06/13/20 07:05 Total Protein 5.8 g/dL (6.6-8.7) L 06/16/20 10:56 Albumin 2.7 g/dL (3.5-5.2) L 06/16/20 10:56 Globulin 3.1 g/dL (1.3-4.6) 06/16/20 10:56 Triglycerides 129 mg/dL (0-150) 06/13/20 07:05 Cholesterol 143 mg/dL (0-200) 06/13/20 07:05 LDL Cholesterol, Calc 80 mg/dL (50-129) 06/13/20 07:05 Total VLDL Cholesterol 26 mg/dL (0-30) 06/13/20 07:05 HDL Cholesterol 37 mg/dL (60-100) L 06/13/20 07:05 Cholesterol/HDL Ratio 3.86 mg/dL (1.0-5.00) 06/13/20 07:05 Procalcitonin 0.28 ng/mL (0-0.5) 06/13/20 07:05 TSH 35.83 uIU/mL (0.27-4.20) H 06/12/20 18:36 Free T4 0.85 ng/dL (0.82-1.77) 06/13/20 07:05 Free T3 1.5 PG/ML (2.0-4.4) L 06/13/20 07:05 Urine Color Yellow (Yellow) 06/12/20 23:15 Urine Appearance Clear (CLEAR) 06/12/20 23:15 Urine pH 5 (5-7) 06/12/20 23:15 Ur Specific [place] 1.015 (1.005-1.030) 06/12/20 23:15 Urine Protein Neg (Negative) 06/12/20 23:15 Urine Glucose (UA) 1+ (Normal) 06/12/20 23:15 Urine Ketones Negative (Negative) 06/12/20 23:15 Urine Blood 2+ (Negative) H 06/12/20 23:15 Urine Nitrate Negative (Negative) 06/12/20 23:15 Urine Bilirubin Neg (Negative) 06/12/20 23:15 Urine Urobilinogen Norm mg/dL (Negative) 06/12/20 23:15 Ur Leukocyte Esterase 1+ (Negative) H 06/12/20 23:15 Urine RBC 5-10 /hpf (0-2) H 06/12/20 23:15 Urine WBC 15-25 /hpf (0-5) H 06/12/20 23:15 Ur Squamous Epith Cells 15-25 /hpf (0-5) H 06/12/20 23:15 Amorphous Sediment Not Reportable 06/12/20 23:15 Urine Bacteria Trace /hpf (NONE) 06/12/20 23:15 Ur Random Sodium 177 mmol/L 06/12/20 23:15 Ur Random Potassium 19 mmol/L 06/12/20 23:15 Ur Random Chloride 167 mmol/L 06/12/20 23:15 Urine Creatinine 58 mg/dL (39-259) 06/12/20 23:15 Vancomycin Trough 21.0 ug/mL (10-15) H 06/14/20 21:24 Random Vancomycin 15.2 ug/mL (20.0-40.0) L 06/12/20 21:[address] 06/12/20 18:36 IMPRESSION: 1. A heel ulcer is noted. No underlying osseous destruction is seen to suggest osteomyelitis. 2. There is an age-indeterminate, nondisplaced fracture involving the posterior malleolus of the distal tibia. 3. There is a probable acute or subacute, oblique fracture involving the distal metadiaphysis of the fibula. 4. Dorsal subcutaneous edema is suspicious for cellulitis. Radiation Dose CTDIVOL = (mGy): DLP = 177.58 (mGy-cm) Foot X-Ray 06/13/20 12:38 IMPRESSION: 1. No acute bone abnormalities 2. Unremarkable soft tissues Duplex Scan Lower Extremity Artery 06/13/20 18:48 IMPRESSION: Negative for clinically significant stenosis Foot MRI 06/15/20 16:17 IMPRESSION: 1. No MR evidence of acute osteomyelitis. 2. Subacute to chronic appearing nondisplaced fractures of the lateral and posterior malleoli. 3. Additional findings, as above. Chest X-Ray 06/16/20 10:07 IMPRESSION: 1. Right-sided PICC line now ending at the cavoatrial junction in good position. 2. Focal infiltrate in the right upper lobe unchanged A&P Assessment and plan (1) Ulcer of left foot: Status: Acute (2) Acute kidney injury superimposed on CKD: Status: Acute (3) CKD (chronic kidney disease): Status: Acute (4) Urethral stricture: Status: Acute Qualifiers: Urethral stricture type: post-procedural Urethral stricture sex- location: male urethra-overlapping sites Qualified Code(s): N99.116 - Postprocedural urethral stricture, male, overlapping sites (5) Chronic indwelling Moscoso catheter: Status: Acute (6) COPD (chronic obstructive pulmonary disease): Status: Acute (7) Hypothyroid: Status: Acute (8) Left tibial fracture: Status: Acute Additional A&P Information 78-year-old man with past medical history of CKD, chronic indwelling Moscoso catheter for history of prostate cancer transferred from outside hospital for podiatry and urology consultation for heel ulcer and replacement of Moscoso catheter. Very limited labs from outside hospital available for now. Will request for further labs. Left heel ulcer: ESR and CRP elevated though CT foot without contrast not revealing any osteomyelitis. On review from cultures from [facility] apparently patient did not have a blood culture or a wound culture done there. MRSA culture is negative. PICC line is placed. MRI negative for osteomyelitis. Plan will be for patient to be on IV antibiotics with ceftriaxone 2 mg IV daily for next 2 weeks to finish a course of antibiotics. Patient will follow up with wound care as an outpatient. Wound care as per surgery. Mchenry 5 mg every 8 hour as needed. Tibial fracture: Care discussed with Dr. Johnson from orthopedics. He would like to see patient in his office on discharge. Urinary stricture/Moscoso catheter: Appreciate urology help. Catheter placed yesterday after dilation of distal urethral stricture. Monitor urine output. UA and urine culture post Moscoso placement. TUAN on CKD: Creatinine mildly worse to 1.9 today. Not sure what patient's baseline creatinine is. Continue with fluid at present rate. Okay for patient to increase his oral intake. COPD: Nebulization as needed. Oxygen supplementation keeping saturation over 90%. No acute exacerbation for now. Hypertension: Goal blood pressure less than 140/90 mmHg. Blood pressure on the softer side so we will continue to hold off on lisinopril. Mean arterial pressure over 60. Continue other chronic medications. Will change medication as per the clinical picture. Start patient on oral iron supplementation for iron deficiency anemia. Increased dose of levothyroxine to 150 mcg daily CODE STATUS: Patient would like to be full code. Heparin 5000 every 12. Cardiac diet. Discharge planning: Given her generalized weakness patient was advised to go to SNF. Which he has agreed to. Awaiting preauthorization. Attestations Medical Necessity Statement*: Hospitalization for management of left heel ulcer, acute kidney injury while safe discharge planning is sought. Time Spent in Patient Care: Greater than 35 minutes (>than 50% of time spent in counselling and/or direct pt care on unit) . Coding Level of Care Code Acute Health Facilities Surveyor for [facility] Fwd Diagnoses Ulcer of left foot L97.529 Acute kidney injury superimposed on CKD N17.9; N18.9 CKD (chronic kidney disease) N18.9 Urethral stricture N99.116 Urethral stricture type: post-procedural Urethral stricture sex-location: male urethra-overlapping sites Chronic indwelling Moscoso catheter Z97.8 COPD (chronic obstructive pulmonary disease) J44.9 Hypothyroid E03.9 Left tibial fracture S82.202A
[2020-06-16] MEDS: cefTRIAXone 2,000 MG in sodium chloride 0.9% (plus) 50 ML 100 MG IV (13:06)
[2020-06-16] MEDS: sodium chloride 0.9% 1,000 ML 50 ML IV (14:21)
[2020-06-16] MEDS: HYDROcodone-acetaminophen 5-325 mg Tablet 1 TAB PO (16:33)
[2020-06-16] MEDS: amitriptyline 25 mg Tablet 50 MG PO (21:14)
[2020-06-17] VITALS (8 sets, daily range): BP systolic 117–136; BP diastolic 60–83; PULSE 69–92; RESP 17–18; TEMP 36.5–36.9; O2SAT 90–95; BMI 28.9
[2020-06-17] MEDS: levothyroxine 150 mcg Tablet PO (05:47)
[2020-06-17] MEDS: heparin 5,000 unit/mL INJ 1 mL 5000 UNIT SUBCUT ×2 (05:47→17:48)
--- NOTE | 2020-06-17 08:45 | PC.SOCIAL ---
IMM update IMM pg 2. updated with patient, verbalized an understanding. Copy provided. Initialed, dated, and timed.
[2020-06-17] MEDS: atorvastatin 40 mg Tablet 20 MG PO (09:24)
[2020-06-17] MEDS: ferrous gluconate 324 mg Tablet PO ×2 (09:24→17:48)
[2020-06-17] MEDS: gabapentin 300 mg Capsule PO ×3 (09:24→21:52)
[2020-06-17] MEDS: famotidine 20 mg/2 mL INJ IVP (09:24)
[2020-06-17] MEDS: aspirin 81 mg EC Tablet PO (09:24)
--- NOTE | 2020-06-17 10:55 | PC.CHAP ---
Pastoral Care Encounter/Spiritual Assessment Type of Contact [] Declined filler spreader visit [] Patient/Family/Request visit [] Outpatient visit [] Follow-up visit [] Physician referral [] Code/Alert [x] Routine visit [] Staff referral [] Actively dying [] Patient sleeping [] Family support [] [] Out of room [] Palliative care [] [x] Receiving care in room [] Pre-surgical visit [] Trauma [x] Long length of stay [] ICU visit [] Other: Relational/Emotional Strength [] Patient feels connected with others/family/visitors/staff [] Distress [] Loneliness/isolation [] Abandonment Spirituality of Patient [] Person of Edel [] Attends Shinto of their Edel [] Believes in Prayer [] Reads Bible or Yazidi materials [] There are Spiritual issues to be addressed Phone Screener Interventions [] Prayer [] Active listening [] Non-anxious presence [] Spiritual/emotional support [] Crisis/trauma care [] Spiritual counseling [] Bereavement support [] Provided bereavement packet [] Provided Bible/devotional materials [] Provided toy/stuffed animal, coloring book to patient or family member [] Provided Communion [] Anointing/[place] [] Salvation [] Completed spiritual assessment [] Other: Impact on Illness or Injury [] Angry [] Fearful [x] Anxious [] Often cries [] Exhaustion [x] Unable to work [] Unable to attend faith [] Unable to walk/stand [] Unable to read [] Unable to drive [] Unable to eat/drink [] Unable to sleep [] Unable to be with family [] Patient intubated [] Other: Summary dealing with an ulcer, going into rehab not dure about healing time, negative attitude Time spent with patient 10 mins
[2020-06-17] MEDS: cefTRIAXone 2,000 MG in sodium chloride 0.9% (plus) 50 ML 100 MG IV (12:28)
[2020-06-17] MEDS: collagenase oint 30 gm 1 APPLIC TOPICAL (12:28)
[2020-06-17] MEDS: sodium chloride 0.9% 1,000 ML 50 ML IV (12:30)
--- NOTE | 2020-06-17 15:30 | P.PN_ITS ---
Subjective Subjective: Interval history: No events overnight. C/o pain in B/L LE , unable to participate with PT today as c.o pain in other leg Medications: Reviewed: Yes Vitals/I&O/Wt Last Vital Signs Temp 97.7 F 06/17/20 11:42 Pulse 81 06/17/20 11:42 Resp 17 06/17/20 11:42 BP 120/72 06/17/20 11:42 Pulse Ox 90 06/17/20 11:42 06/17/20 06/17/20 06/17/20 06:59 14:59 22:59 Intake Total 1480 / 1480 Output Total 1000 / 1000 Balance 480 / 480 Weight last 48 hrs Weight 102.172 kg Weight 99.881 kg Physical Exam Narrative: EXAM NARRATIVE: GEN: Awake, alert and oriented, no acute distress CVS: S1S2 N RS: scattered wheezing to auscultation B/L Abd: Soft, nt/nd , bs+ 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 ext: noted heel ulceration, necrotic debris overlying, no gross surrounding cellulitis Urinary Catheter Management^: Moscoso: Cath Placed During This Visit: yes Reason for Continuing Indwelling Catheter: Chronic Indwelling Urinary Catheter on Admission Urinary Catheter Date of Insertion: 06/12/20 Urinary Catheter Time of Insertion: 20:00 Data : 06/15/20 05:25 06/16/20 10:56 Micro: Microbiology 06/12/20 18:45 Gram Stain - Final Leg - Left Wound Culture - Final A&P Assessment and plan (1) Ulcer of left foot: Status: Acute (2) Acute kidney injury superimposed on CKD: Status: Acute (3) CKD (chronic kidney disease): Status: Acute (4) Urethral stricture: Status: Acute Qualifiers: Urethral stricture type: post-procedural Urethral stricture sex- location: male urethra-overlapping sites Qualified Code(s): N99.116 - Postprocedural urethral stricture, male, overlapping sites (5) Chronic indwelling Moscoso catheter: Status: Acute (6) COPD (chronic obstructive pulmonary disease): Status: Acute (7) Hypothyroid: Status: Acute (8) Left tibial fracture: Status: Acute Additional A&P Information 78-year-old man with past medical history of CKD, chronic indwelling Moscoso cath eter for history of prostate cancer transferred from outside hospital for podiatry and urology consultation for heel ulcer and replacement of Moscoso catheter. Left heel ulcer: ESR and CRP elevated though CT foot and MRI not c/w osteomyelitis PICC line is placed. Plan will be for patient to be on IV antibiotics with ceftriaxone 2 mg IV daily for next 2 weeks to finish a course of antibiotics for skin and soft tissue infection. Patient will follow up with wound care as an outpatient. Wound care as per surgery. Roy 5 mg every 8 hour as needed for pain control Tibial fracture: Care discussed with Dr. Johnson from orthopedics. He would like to see patient in his office on discharge. Urinary stricture/Moscoso catheter: Appreciate urology help. Catheter placed after dilation of distal urethral stricture. Monitor urine output. UA and urine culture post Moscoso placement. TUAN on CKD: Creatinine stable at 1.5 COPD: Nebulization as needed. Scattered wheezing on exam today, patient denies dyspnea Oxygen supplementation keeping saturation over 90%. No acute exacerbation for now. Hypertension: Goal blood pressure less than 140/90 mmHg. Blood pressure on the softer side so we will continue to hold off on lisinopril. Mean arterial pressure over 60. Continue other chronic medications. Will change medication as per the clinical picture. Start patient on oral iron supplementation for iron deficiency anemia. Increased dose of levothyroxine to 150 mcg daily CODE STATUS: Patient would like to be full code. Heparin 5000 every 12. Cardiac diet. Discharge planning: Given his generalized weakness patient was advised to go to SNF. Which he has agreed to. Awaiting preauthorization. Attestations Medical Necessity Statement*: ongoing iv antibiotics, deconditioning, ongoing therapy Coding Level of Care Code Acute Interactive Developer for [facility] Fwd Diagnoses Ulcer of left foot L97.529 Acute kidney injury superimposed on CKD N17.9; N18.9 CKD (chronic kidney disease) N18.9 Urethral stricture N99.116 Urethral stricture type: post-procedural Urethral stricture sex-location: male urethra-overlapping sites Chronic indwelling Moscoso catheter Z97.8 COPD (chronic obstructive pulmonary disease) J44.9 Hypothyroid E03.9 Left tibial fracture S82.202A
[2020-06-17] MEDS: famotidine 20 mg Tablet PO (17:48)
[2020-06-17] MEDS: amitriptyline 25 mg Tablet 50 MG PO (21:52)
[2020-06-18] VITALS (8 sets, daily range): BP systolic 117–142; BP diastolic 68–82; PULSE 78–95; RESP 15–18; TEMP 36.5–37; O2SAT 90–95
[2020-06-18] MEDS: heparin 5,000 unit/mL INJ 1 mL 5000 UNIT SUBCUT ×2 (05:58→17:11)
[2020-06-18] MEDS: levothyroxine 150 mcg Tablet PO (05:58)
[2020-06-18] MEDS: gabapentin 300 mg Capsule PO ×3 (08:56→20:34)
[2020-06-18] MEDS: atorvastatin 40 mg Tablet 20 MG PO (08:56)
[2020-06-18] MEDS: famotidine 20 mg Tablet PO ×2 (08:56→17:11)
[2020-06-18] MEDS: aspirin 81 mg EC Tablet PO (08:56)
[2020-06-18] MEDS: ferrous gluconate 324 mg Tablet PO ×2 (08:56→17:11)
[2020-06-18] MEDS: collagenase oint 30 gm 1 APPLIC TOPICAL (08:57)
[2020-06-18] MEDS: sodium chloride 0.9% 1,000 ML 50 ML IV (08:57)
[2020-06-18] MEDS: cefTRIAXone 2,000 MG in sodium chloride 0.9% (plus) 50 ML 100 MG IV (11:45)
--- NOTE | 2020-06-18 17:46 | PM.PN ---
Subjective Subjective: Interval history: no acute interim events, hemodynamically stable Medications: Reviewed: Yes Vitals/I&O/Wt Last Vital Signs Temp 98.6 F 06/18/20 15:50 Pulse 95 06/18/20 15:50 Resp 18 06/18/20 15:50 BP 130/78 06/18/20 15:50 Pulse Ox 94 06/18/20 15:50 06/18/20 06/18/20 06/18/20 06:59 14:59 22:59 Intake Total 1410 / 1410 Output Total 600 / 2300 Balance -600 / -290 1410 / 1410 Weight last 48 hrs Weight 102.421 kg Weight 102.172 kg Physical Exam Narrative: EXAM NARRATIVE: GEN: Awake, alert and oriented, no acute distress CVS: S1S2 N RS: clear to auscultation B/L all areas Abd: Soft, nt/nd , bs+ 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 ext: noted heel ulceration, necrotic debris overlying, no gross surrounding cellulitis Urinary Catheter Management^: Moscoso: Cath Placed During This Visit: yes Reason for Continuing Indwelling Catheter: Acute Urinary Retention or Obstruction Urinary Catheter Date of Insertion: 06/12/20 Urinary Catheter Time of Insertion: 20:00 Data : 06/15/20 05:25 06/16/20 10:56 Micro: Microbiology 06/12/20 18:42 Blood Culture - Final Blood NO GROWTH AFTER 5 DAYS 06/12/20 18:36 Blood Culture - Final Blood NO GROWTH AFTER 5 DAYS A&P Assessment and plan (1) Ulcer of left foot: Status: Acute (2) Acute kidney injury superimposed on CKD: Status: Acute (3) CKD (chronic kidney disease): Status: Acute (4) Urethral stricture: Status: Acute Qualifiers: Urethral stricture type: post-procedural Urethral stricture sex-location: male urethra-overlapping sites Qualified Code(s): N99.116 - Postprocedural urethral stricture, male, overlapping sites (5) Chronic indwelling Moscoso catheter: Status: Acute (6) COPD (chronic obstructive pulmonary disease): Status: Acute (7) Hypothyroid: Status: Acute (8) Left tibial fracture: Status: Acute Additional A&P Information 78-year-old man with past medical history of CKD, chronic indwelling Moscoso catheter for history of prostate cancer transferred from outside hospital for podiatry and urology consultation for heel ulcer and replacement of Moscoso catheter. Left heel ulcer: ESR and CRP elevated though CT foot and MRI not c/w osteomyelitis PICC line is placed. Plan will be for patient to be on IV antibiotics with ceftriaxone 2 mg IV daily for next 2 weeks to finish a course of antibiotics for skin and soft tissue infection. Patient will follow up with wound care as an outpatient. Wound care as per surgery. Stendal 5 mg every 8 hour as needed for pain control Tibial fracture: Care discussed with Dr. Johnson from orthopedics. He would like to see patient in his office on discharge. Urinary stricture/Moscoso catheter: Appreciate urology help. Catheter placed after dilation of distal urethral stricture. Monitor urine output. UA and urine culture post Moscoso placement. TUAN on CKD: Creatinine stable at 1.5 COPD: Nebulization as needed. Scattered wheezing on exam today, patient denies dyspnea Oxygen supplementation keeping saturation over 90%. No acute exacerbation for now. Hypertension: Goal blood pressure less than 140/90 mmHg. Blood pressure on the softer side so we will continue to hold off on lisinopril. Mean arterial pressure over 60. Continue other chronic medications. Will change medication as per the clinical picture. Start patient on oral iron supplementation for iron deficiency anemia. Increased dose of levothyroxine to 150 mcg daily CODE STATUS: Patient would like to be full code. Heparin 5000 every 12. Cardiac diet. Discharge planning: Given his generalized weakness patient was advised to go to SNF. Which he has agreed to. Awaiting preauthorization. Attestations Medical Necessity Statement*: ongoing treatment with iv abx Coding Level of Care Code Acute Cell Feed Department Supervisor for [facility] Fwd Diagnoses Ulcer of left foot L97.529 Acute kidney injury superimposed on CKD N17.9; N18.9 CKD (chronic kidney disease) N18.9 Urethral stricture N99.116 Urethral stricture type: post-procedural Urethral stricture sex-location: male urethra-overlapping sites Chronic indwelling Moscoso catheter Z97.8 COPD (chronic obstructive pulmonary disease) J44.9 Hypothyroid E03.9 Left tibial fracture S82.202A
[2020-06-18] MEDS: amitriptyline 25 mg Tablet 50 MG PO (20:34)
[2020-06-19] VITALS (8 sets, daily range): BP systolic 123–134; BP diastolic 69–82; PULSE 76–92; RESP 16–19; TEMP 36.8–37.1; O2SAT 93–97
[2020-06-19] MEDS: levothyroxine 150 mcg Tablet PO (06:18)
[2020-06-19] MEDS: heparin 5,000 unit/mL INJ 1 mL 5000 UNIT SUBCUT ×2 (06:19→17:37)
[2020-06-19] MEDS: sodium chloride 0.9% 1,000 ML 50 ML IV (06:19)
[2020-06-19] MEDS: ferrous gluconate 324 mg Tablet PO ×2 (08:09→17:37)
[2020-06-19] MEDS: aspirin 81 mg EC Tablet PO (08:09)
[2020-06-19] MEDS: famotidine 20 mg Tablet PO ×2 (08:09→17:37)
[2020-06-19] MEDS: atorvastatin 40 mg Tablet 20 MG PO (08:09)
[2020-06-19] MEDS: gabapentin 300 mg Capsule PO ×3 (08:09→21:04)
[2020-06-19] MEDS: collagenase oint 30 gm 1 APPLIC TOPICAL (08:10)
--- NOTE | 2020-06-19 10:11 | PC.SOCIAL ---
IMM Updated Updated pt on Pg 2 IMM. No questions voiced. Provided pt a copy. Initialed, dated, & timed copy in chart.
[2020-06-19] MEDS: cefTRIAXone 2,000 MG in sodium chloride 0.9% (plus) 50 ML 100 MG IV (11:01)
--- NOTE | 2020-06-19 16:08 | P.PN_ITS ---
Subjective Subjective: Interval history: Patient developed 3-4 episodes of diarrhea overnight, refused to participate with physical therapy today due to diarrhea. Also noted to have some leaking around his Moscoso catheter, is on intermittent irrigation which has been helping. 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 ext: noted heel ulceration, unchanged over previosu exam, no gross isgns of cellulitis Urinary Catheter Management^: Moscoso: Cath Placed During This Visit: yes Reason for Continuing Indwelling Catheter: Accurate Measurement of Urinary Output in Critically Ill Patients Urinary Catheter Date of Insertion: 06/12/20 Urinary Catheter Time of Insertion: 20:00 Data : 06/15/20 05:25 06/16/20 10:56 A&P Assessment and plan (1) Ulcer of left foot: Status: Acute (2) Acute kidney injury superimposed on CKD: Status: Acute (3) CKD (chronic kidney disease): Status: Acute (4) Urethral stricture: Status: Acute Qualifiers: Urethral stricture type: post-procedural Urethral stricture sex- location: male urethra-overlapping sites Qualified Code(s): N99.116 - Postprocedural urethral stricture, male, overlapping sites (5) Chronic indwelling Moscoso catheter: Status: Acute (6) COPD (chronic obstructive pulmonary disease): Status: Acute (7) Hypothyroid: Status: Acute (8) Left tibial fracture: Status: Acute Additional A&P Information 78-year-old man with past medical history of CKD, chronic indwelling Moscoso catheter for history of prostate cancer transferred from outside hospital for podiatry and urology consultation for heel ulcer and replacement of Moscoso catheter. Left heel ulcer: ESR and CRP elevated though CT foot and MRI not c/w osteomyelitis PICC line is placed. Plan will be for patient to be on IV antibiotics with ceftriaxone 2 mg IV daily for next 2 weeks to finish a course of antibiotics for skin and soft tissue infection. Patient will follow up with wound care as an outpatient. Wound care as per surgery. [place] 5 mg every 8 hour as needed for pain control Diarrhea: overnight with 3-4 episodes, check C diff PCR Tibial fracture: Care discussed with Dr. Johnson from orthopedics. He would like to see patient in his office on discharge. Urinary stricture/Moscoso catheter: Appreciate urology help. Catheter placed after dilation of distal urethral stricture. Monitor urine output. UA and urine culture post Moscoso placement. TUAN on CKD: Creatinine stable at 1.5 COPD: Nebulization as needed. Scattered wheezing on exam today, patient denies dyspnea Oxygen supplementation keeping saturation over 90%. No acute exacerbation for now. Hypertension: Goal blood pressure less than 140/90 mmHg. Blood pressure on the softer side so we will continue to hold off on lisinopril. Mean arterial pressure over 60. Continue other chronic medications. Will change medication as per the clinical picture. Start patient on oral iron supplementation for iron deficiency anemia. Increased dose of levothyroxine to 150 mcg daily CODE STATUS: Patient would like to be full code. Heparin 5000 every 12. Cardiac diet. Discharge planning: Given his generalized weakness, deconditioning, lives alone with poor mobility, unable to carry out ADLs, unable self administer iv abx, discharge to SNF recommended Attestations Medical Necessity Statement*: Interval development of diarrhea overnight, check C diff PCR, need for iv abx Coding Level of Care Code Acute Photoengraving Retoucher for Chg Fwd Diagnoses Ulcer of left foot L97.529 Acute kidney injury superimposed on CKD N17.9; N18.9 CKD (chronic kidney disease) N18.9 Urethral stricture N99.116 Urethral stricture type: post-procedural Urethral stricture sex-location: male urethra-overlapping sites Chronic indwelling Moscoso catheter Z97.8 COPD (chronic obstructive pulmonary disease) J44.9 Hypothyroid E03.9 Left tibial fracture S82.202A
--- NOTE | 2020-06-19 17:59 | PC.NURSE ---
explained the importance of working with physical therapy to patient, and the nursing facilities could refuse to accept patient if he is not cooperating with therapy. pt verbalized understanding.
[2020-06-19] MEDS: amitriptyline 25 mg Tablet 50 MG PO (21:04)
[2020-06-20] VITALS (7 sets, daily range): BP systolic 119–145; BP diastolic 75–81; PULSE 74–108; RESP 16–24; TEMP 36.7–37.6; O2SAT 92–96
--- NOTE | 2020-06-20 05:44 | PC.NURSE ---
shift summary Good night, no complaints during this shift. Moscoso irrigated once due to leakage. Incontinent of 2 stools tonight. C-DIFF results negative. Dressing on heel clean, dry and intact.
[2020-06-20] MEDS: heparin 5,000 unit/mL INJ 1 mL 5000 UNIT SUBCUT ×2 (05:55→17:48)
[2020-06-20] MEDS: levothyroxine 150 mcg Tablet PO (05:55)
[2020-06-20 06:44] LABS: Alanine Aminotransferase 11 U/L (0-41); Alkaline Phosphatase 74 IU/L (40-130); Anion Gap 12.8 (5-19); Aspartate Amino Transferase 14 U/L (0-40); Blood Urea Nitrogen 14 mg/dL (8-23); Calcium 9.5 mg/dL (8.5-10.5); Carbon Dioxide 25 mmol/L (22-29); Chloride 108 mmol/L (98-107); Creatinine Clr Calc Pharmacy 60.6957; Globulin 3.1 g/dL (1.3-4.6); Glucose 91 mg/dL (65-115); Osmolality Calculated 294 mOsm/kg (285-295); Potassium 3.8 mmol/L (3.5-5.1); Sodium 142 mmol/L (136-145); Total Bilirubin 0.2 mg/dL (0.15-1.2); Total Protein 6.1 g/dL (6.6-8.7)
[2020-06-20] MEDS: aspirin 81 mg EC Tablet PO (08:45)
[2020-06-20] MEDS: ferrous gluconate 324 mg Tablet PO ×2 (08:45→17:48)
[2020-06-20] MEDS: atorvastatin 40 mg Tablet 20 MG PO (08:45)
[2020-06-20] MEDS: gabapentin 300 mg Capsule PO ×3 (08:45→21:12)
[2020-06-20] MEDS: collagenase oint 30 gm 1 APPLIC TOPICAL (08:45)
[2020-06-20] MEDS: famotidine 20 mg Tablet PO ×2 (08:45→17:48)
[2020-06-20] MEDS: cefTRIAXone 2,000 MG in sodium chloride 0.9% (plus) 50 ML 100 MG IV (11:25)
--- NOTE | 2020-06-20 19:13 | P.PN_ITS ---
Subjective Subjective: Interval history: no acute overnight events, foot stable , 1 episode of diarrhea today, improving Medications: Reviewed: Yes Vitals/I&O/Wt Last Vital Signs Temp 98.9 F 06/20/20 15:57 Pulse 93 06/20/20 15:57 Resp 18 06/20/20 15:57 BP 120/75 06/20/20 15:57 Pulse Ox 96 06/20/20 15:57 06/20/20 06/20/20 06/20/20 06:59 14:59 22:59 Intake Total 400 / 1170 170 / 170 120 / 290 Output Total 650 / 1900 1150 / 1150 Balance -250 / -730 -980 / -980 120 / -860 Weight last 48 hrs Weight 102.739 kg Weight 103.737 kg Physical Exam Narrative: EXAM NARRATIVE: GEN: Awake, alert and oriented, no acute distress CVS: S1S2 N RS: clear to auscultation B/L all areas Abd: Soft, nt/nd , bs+ 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 ext: noted heel ulceration, unchanged over previosu exam, no gross isgns of cellulitis Urinary Catheter Management^: Moscoso: Cath Placed During This Visit: yes Reason for Continuing Indwelling Catheter: Acute Urinary Retention or Obstruction Urinary Catheter Date of Insertion: 06/12/20 Urinary Catheter Time of Insertion: 20:00 Data : 06/15/20 05:25 06/20/20 05:52 Micro: Microbiology 06/19/20 19:00 C.difficile Toxin B Gene (PCR) - Final Stool A&P Assessment and plan (1) Ulcer of left foot: Status: Acute (2) Acute kidney injury superimposed on CKD: Status: Acute (3) CKD (chronic kidney disease): Status: Acute (4) Urethral stricture: Status: Acute Qualifiers: Urethral stricture type: post-procedural Urethral stricture sex- location: male urethra-overlapping sites Qualified Code(s): N99.116 - Postprocedural urethral stricture, male, overlapping sites (5) Chronic indwelling Moscoso catheter: Status: Acute (6) COPD (chronic obstructive pulmonary disease): Status: Acute (7) Hypothyroid: Status: Acute (8) Left tibial fracture: Status: Acute Additional A&P Information 78-year-old man with past medical history of CKD, chronic indwelling Moscoso catheter for history of prostate cancer transferred from outside hospital for podiatry and urology consultation for heel ulcer and replacement of Moscoso catheter. Left heel ulcer: ESR and CRP elevated though CT foot and MRI not c/w osteomyelitis PICC line is placed. Plan will be for patient to be on IV antibiotics with ceftriaxone 2 mg IV daily for next 2 weeks to finish a course of antibiotics for skin and soft tissue infection. Patient will follow up with wound care as an outpatient. Wound care as per surgery. [place] 5 mg every 8 hour as needed for pain control Diarrhea: overnight with 3-4 episodes, check C diff PCR Tibial fracture: Care discussed with Dr. Johnson from orthopedics. He would like to see patient in his office on discharge. Urinary stricture/Moscoso catheter: Appreciate urology help. Catheter placed after dilation of distal urethral stricture. Monitor urine output. UA and urine culture post Moscoso placement. TUAN on CKD: Creatinine stable at 1.5 COPD: Nebulization as needed. Scattered wheezing on exam today, patient denies dyspnea Oxygen supplementation keeping saturation over 90%. No acute exacerbation for now. Hypertension: Goal blood pressure less than 140/90 mmHg. Blood pressure on the softer side so we will continue to hold off on lisinopril. Mean arterial pressure over 60. Continue other chronic medications. Will change medication as per the clinical picture. Start patient on oral iron supplementation for iron deficiency anemia. I ncreased dose of levothyroxine to 150 mcg daily CODE STATUS: Patient would like to be full code. Heparin 5000 every 12. Cardiac diet. Discharge planning: Given his generalized weakness, deconditioning, lives alone with poor mobility, unable to carry out ADLs, unable self administer iv abx, discharge to SNF recommended Attestations Medical Necessity Statement*: ongoing need for iv abx, unable to carry out ADLs at home safely, disposition planning Coding Level of Care Code Acute Community Relations Police Lieutenant for Chg Fwd Diagnoses Ulcer of left foot L97.529 Acute kidney injury superimposed on CKD N17.9; N18.9 CKD (chronic kidney disease) N18.9 Urethral stricture N99.116 Urethral stricture type: post-procedural Urethral stricture sex-location: male urethra-overlapping sites Chronic indwelling Moscoso catheter Z97.8 COPD (chronic obstructive pulmonary disease) J44.9 Hypothyroid E03.9 Left tibial fracture S82.202A
[2020-06-20] MEDS: amitriptyline 25 mg Tablet 50 MG PO (21:12)
[2020-06-21 03:53] VITALS: BP 113/68; PULSE 102; RESP 22; TEMP 37.7; O2SAT 92
[2020-06-21] MEDS: heparin 5,000 unit/mL INJ 1 mL 5000 UNIT SUBCUT ×2 (05:53→17:49)
[2020-06-21] MEDS: levothyroxine 150 mcg Tablet PO (05:53)
[2020-06-21 06:00] VITALS: BMI 28.8
[2020-06-21 07:27] VITALS: BP 115/76; PULSE 100; RESP 18; TEMP 37.1; O2SAT 91
--- NOTE | 2020-06-21 09:15 | PC.SOCIAL ---
IMM Updated Updated pt on Pg 2 IMM. No questions voiced. Provided pt a copy. Initialed, dated, & timed copy in chart.
--- NOTE | 2020-06-21 09:15 | PM.PN ---
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 Urinary Catheter Management^: Moscoso: Cath Placed During This Visit: yes Reason for Continuing Indwelling Catheter: Accurate Measurement of Urinary Output in Critically Ill Patients Urinary Catheter Date of Insertion: 06/12/20 Urinary Catheter Time of Insertion: 20:00 Data : 06/22/20 04:19 06/22/20 04:19 Micro: Microbiology 06/22/20 04:19 Blood Culture - Preliminary Blood NEGATIVE TO DATE 06/22/20 04:19 Blood Culture - Preliminary Blood NEGATIVE TO DATE A&P Assessment and plan (1) Ulcer of left foot: Status: Acute (2) Acute kidney injury superimposed on CKD: (3) CKD (chronic kidney disease): (4) Urethral stricture: Qualifiers: Urethral stricture type: post-procedural Urethral stricture sex-location: male urethra-overlapping sites Qualified Code(s): N99.116 - Postprocedural urethral stricture, male, overlapping sites (5) Chronic indwelling Moscoso catheter: (6) COPD (chronic obstructive pulmonary disease): (7) Hypothyroid: (8) Left tibial fracture: Additional A&P Information 78-year-old man with past medical history of CKD, chronic indwelling Moscoso catheter for history of prostate cancer transferred from outside hospital for podiatry and urology consultation for heel ulcer and replacement of Moscoso catheter. Left heel ulcer: ESR and CRP elevated though CT foot and MRI not c/w osteomyelitis PICC line is placed. Plan will be for patient to be on IV antibiotics with ceftriaxone 2 mg IV daily for next 2 weeks to finish a course of antibiotics for skin and soft tissue infection. Patient will follow up with wound care as an outpatient. Wound care as per surgery. [place] 5 mg every 8 hour as needed for pain control Diarrhea: overnight with 3-4 episodes, check C diff PCR Tibial fracture: Care discussed with Dr. Johnson from orthopedics. He would like to see patient in his office on discharge. Urinary stricture/Moscoso catheter: Appreciate urology help. Catheter placed after dilation of distal urethral stricture. Monitor urine output. UA and urine culture post Moscoso placement. TUAN on CKD: Creatinine stable at 1.5 COPD: Nebulization as needed. Scattered wheezing on exam today, patient denies dyspnea Oxygen supplementation keeping saturation over 90%. No acute exacerbation for now. Hypertension: Goal blood pressure less than 140/90 mmHg. Blood pressure on the softer side so we will continue to hold off on lisinopril. Mean arterial pressure over 60. Continue other chronic medications. Will change medication as per the clinical picture. Start patient on oral iron supplementation for iron deficiency anemia. Increased dose of levothyroxine to 150 mcg daily CODE STATUS: Patient would like to be full code. Heparin 5000 every 12. Cardiac diet. Discharge planning: Given his generalized weakness, deconditioning, lives alone with poor mobility, unable to carry out ADLs, unable self administer iv abx, discharge to SNF recommended Attestations Medical Necessity Statement*: iv abx, disposition planning Coding Level of Care Code Acute Director Nicu for Chg Fwd Diagnoses Ulcer of left foot L97.529 Acute kidney injury superimposed on CKD N17.9; N18.9 CKD (chronic kidney disease) N18.9 Urethral stricture N99.116 Urethral stricture type: post-procedural Urethral stricture sex-location: male urethra-overlapping sites Chronic indwelling Moscoso catheter Z97.8 COPD (chronic obstructive pulmonary disease) J44.9 Hypothyroid E03.9 Left tibial fracture S82.202A
[2020-06-21] MEDS: famotidine 20 mg Tablet PO ×2 (09:32→17:49)
[2020-06-21] MEDS: aspirin 81 mg EC Tablet PO (09:32)
[2020-06-21] MEDS: ferrous gluconate 324 mg Tablet PO ×2 (09:32→17:49)
[2020-06-21] MEDS: atorvastatin 40 mg Tablet 20 MG PO (09:32)
[2020-06-21] MEDS: gabapentin 300 mg Capsule PO ×3 (09:32→20:36)
[2020-06-21] MEDS: collagenase oint 30 gm 1 APPLIC TOPICAL (11:20)
[2020-06-21 11:59] VITALS: BP 115/74; PULSE 99; RESP 18; TEMP 36.6; O2SAT 93
[2020-06-21] MEDS: cefTRIAXone 2,000 MG in sodium chloride 0.9% (plus) 50 ML 100 MG IV (12:16)
[2020-06-21 15:53] VITALS: BP 122/72; PULSE 96; RESP 17; TEMP 37.2; O2SAT 91
--- NOTE | 2020-06-21 16:11 | XRR_ITS ---
PROCEDURE INFORMATION: Exam: XR Chest Exam date and time: 06/21/2020 4:15 PM Age: 80 years old Clinical indication: Shortness of breath; Additional info: Atelactasis vs pneumonia TECHNIQUE: Imaging protocol: XR of the chest. Views: 1 view. COMPARISON: CR XR chest 1V portable [id number] 06/16/2020 10:57 AM FINDINGS: Tubes, catheters and devices: Right upper extremity PICC line terminates distal SVC. Lungs: Opacity with irregular margins right mid lung zone similar to comparison imaging, however difficult to accurately compare as the projections between exams are slightly different. Background emphysema. Coarsened reticular interstitial lung change. Pleural spaces: Unremarkable. No pleural effusion. No pneumothorax. Heart/Mediastinum: Unremarkable. No cardiomegaly. Bones/joints: Partial visualization of lower cervical spine ACDF. No acute thoracic fractures. XR/XR chest 1V portable [id number] IMPRESSION: Focal opacity with irregular margins persists in the right lateral mid lung zone. A pneumonia or a pulmonary mass cannot be excluded. Continued radiographic follow-up is recommended.
[2020-06-21 18:36] LABS: SARS Covid-2 Antigen Negative (Negative)
[2020-06-21 19:54] VITALS: BP 139/88; PULSE 105; RESP 23; TEMP 37.6; O2SAT 94
[2020-06-21] MEDS: amitriptyline 25 mg Tablet 50 MG PO (20:36)
[2020-06-22] VITALS (8 sets, daily range): BP systolic 94–116; BP diastolic 56–71; PULSE 93–100; RESP 18–23; TEMP 36.5–36.9; O2SAT 90–94; BMI 27.5
[2020-06-22 04:46] LABS: Basophils % 0.5 %; Eosinophils # 0.3 10^3/uL (0.0-0.8); Eosinophils % 4.5 %; Hematocrit 36.9 % (42.0-52.0); Hemoglobin 11.4 g/dL (11.7-16.6); Lymphocytes # 1.6 10^3/uL (0.8-4.8); Lymphocytes % 21.3 %; Mean Corpuscular HGB Conc 30.9 g/dL (30.0-36.0); Mean Corpuscular Hemoglobin 30.4 pg (28.0-34.0); Mean Corpuscular Volume 98.4 fL (80-94); Mean Platelet Volume 9.8 fL (7.4-10.4); Monocytes # 0.7 10^3/uL (0.2-0.9); Monocytes % 8.9 %; Neutrophils # 4.84 10^3/uL (1.8-7.7); Neutrophils % 64.1 %; Nucleated Red Blood Cells % 0 %; Platelet Count 318 10^3/cmm (130-400); Red Blood Count 3.75 10^6/uL (4.1-5.3); Red Cell Distribution Width 14.7 % (12.1-15.1); White Blood Count 7.6 10^3/uL (4.0-10.0)
[2020-06-22 04:59] LABS: Alanine Aminotransferase 10 U/L (0-41); Albumin Level 2.8 g/dL (3.5-5.2); Alkaline Phosphatase 70 IU/L (40-130); Anion Gap 10.2 (5-19); Aspartate Amino Transferase 13 U/L (0-40); Blood Urea Nitrogen 15 mg/dL (8-23); Calcium 9.3 mg/dL (8.5-10.5); Carbon Dioxide 28 mmol/L (22-29); Chloride 103 mmol/L (98-107); Globulin 3.2 g/dL (1.3-4.6); Glucose 98 mg/dL (65-115); Osmolality Calculated 285 mOsm/kg (285-295); Potassium 4.2 mmol/L (3.5-5.1); Sodium 137 mmol/L (136-145); Total Bilirubin 0.3 mg/dL (0.15-1.2)
[2020-06-22] MEDS: levothyroxine 150 mcg Tablet PO (06:26)
[2020-06-22] MEDS: heparin 5,000 unit/mL INJ 1 mL 5000 UNIT SUBCUT (06:26)
[2020-06-22] MEDS: aspirin 81 mg EC Tablet PO (08:51)
[2020-06-22] MEDS: ferrous gluconate 324 mg Tablet PO (08:51)
[2020-06-22] MEDS: famotidine 20 mg Tablet PO (08:51)
[2020-06-22] MEDS: atorvastatin 40 mg Tablet 20 MG PO (08:51)
[2020-06-22] MEDS: collagenase oint 30 gm 1 APPLIC TOPICAL (08:51)
[2020-06-22] MEDS: gabapentin 300 mg Capsule PO (08:51)
[2020-06-22] MEDS: cefTRIAXone 2,000 MG in sodium chloride 0.9% (plus) 50 ML 100 MG IV (12:21)
--- NOTE | 2020-06-22 13:11 | PC.NURSE ---
report called to [facility] and given to JACINTA Baeza.
--- NOTE | 2020-06-22 15:24 | PC.NURSE ---
patient assisted to wheelchair and transferred to SNF via transport.
--- NOTE | 2020-06-22 17:34 | P.DS_ITS ---
Discharge Providers Date of Admission: 06/12/20 17:43 Date of Discharge: June 22, 2020 Attending Provider at Admission: Chavo Mckay MD Attending Provider at Discharge: Cristina Harman MD Primary Care Provider: Roosevelt Lieberman DO Diagnoses at Discharge Discharge Diagnosis (1) Ulcer of left foot: Status: Acute (2) Acute kidney injury superimposed on CKD: Status: Acute (3) CKD (chronic kidney disease): Status: Acute (4) Urethral stricture: Status: Acute Qualifiers: Urethral stricture type: post-procedural Urethral stricture sex- location: male urethra-overlapping sites Qualified Code(s): N99.116 - Postprocedural urethral stricture, male, overlapping sites (5) Chronic indwelling Moscoso catheter: Status: Acute (6) COPD (chronic obstructive pulmonary disease): Status: Acute (7) Hypothyroid: Status: Acute (8) Left tibial fracture: Status: Acute Reason for Visit Reason for Visit: L HEEL ULCER Hospital Course Hospital Course Kishan Patel is a 80 year old male with past medical history of parkinsonism, hypothyroidism, COPD, CKD stage III, questionable history of peripheral arterial disease, hyperlipidemia, hypertension, history of prostate cancer with chronic indwelling Moscoso catheter who was transferred over here from [facility]. Patient went to [facility] 4 days ago when he was sent over from wound care center. On presentation to the hospital he was found to have TUAN on CKD with creatinine of 3.6 with bruising left foot ulcers with admitted for possible cellulitis. Patient also gives history of having chronic Moscoso catheter which apparently fell out 3 weeks ago and was replaced only when he went to the hospital with a feeding tube as at the hospital they were not able to go past his prostate. He was treated with antibiotics vancomycin and cefepime at the hospital. Patient as per the transferring doctor did not have any fevers during hospitalization remained hemodynamically stable and his creatinine came down to 1.7. As they were concerned about patient having osteomyelitis needing podiatry service and proper Moscoso catheterization needing urologist further transfer to a higher center was sought and patient was accepted at [facility]. For his left heel ulcer he underwent evaluation for osteomyelitis due to elevated ESR and CRP. CT foot and MRI did not show any evidence of osteomyelitis. He was treated with IV antibiotics plan for ceftriaxone 2 g IV daily for 2 weeks via PICC line to treat skin and soft tissue infection. His leg did not improve with receiving IV antibiotics. Patient was also noted to have a chronic tibial fracture, case was discussed with Dr. Johnson from orthopedics, recommended outpatient follow-up for the same. PT OT eval was completed. For urinary stricture/Moscoso catheter, urology was consulted and a new catheter was placed after dilatation of the distal urethral stricture. Patient tolerated this well. His TUAN resolved, creatinine was back at baseline of 1.4-1.5. For his COPD he received nebulization as needed. Lisinopril was discontinued at discharge as blood pressure without antihypertensives ranging around systolic of 100. Oral iron supplementation has been started for iron deficiency anemia. He is being discharged to nursing home facility today in stable condition. 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 Urinary Catheter Management^: Moscoso: Cath Placed During This Visit: yes Reason for Continuing Indwelling Catheter: Accurate Measurement of Urinary Output in Critically Ill Patients Urinary Catheter Date of Insertion: 06/12/20 Urinary Catheter Time of Insertion: 20:00 Discharge Data Data Completed and Pending: Completed Studies During Hospitalization Category Date Time Status CT foot LT wo con * [id number] Routine Cat Scan 06/12/20 18:36 Completed XR chest 1V emile ble [id number] Routine Exams 06/12/20 18:36 Completed XR chest 1V emile ble [id number] Routine Exams 06/16/20 10:07 Completed XR chest 1V emile ble [id number] Routine Exams 06/21/20 16:11 Completed XR foot LT 2V 736 20 Routine Exams 06/13/20 12:38 [place] wo/[place] [id number] Routine MRI 06/15/20 16:17 [place] [id number] Rout ine Ultrasound 06/13/20 18:48 Completed CV echo limited 9 [id number] Routine Ultrasound 06/13/20 18:05 Completed Pending at discharge Category Date Time Status Blood Culture AM LABS Lab 06/22/20 04:19 Results Labs from last 24 hours 06/22/20 06/22/20 06/21/20 04:19 04:19 18:07 WBC 7.6 RBC 3.75 L Hgb 11.4 L Hct 36.9 L MCV 98.4 H MCH 30.4 MCHC 30.9 RDW 14.7 Plt Count 318 MPV 9.8 Neut % (Auto) 64.1 Lymph % (Auto) 21.3 [place] % (Auto) 8.9 Eos % (Auto) 4.5 Baso % (Auto) 0.5 Neut # (Auto) 4.84 Lymph # (Auto) 1.6 [place] # (Auto) 0.7 Eos # (Auto) 0.3 Baso # (Auto) 0.0 Nucleated RBC % (a uto) 0 Nucleated RBCs # 0.0 Sodium 137 Potassium 4.2 Chloride 103 Carbon Dioxide 28 Anion Gap 10.2 BUN 15 Creatinine 1.4 H GFR Calculation Not Reportable Glucose 98 Calculated Osmolal ity 285 Calcium 9.3 Total Bilirubin 0.3 AST 13 ALT 10 Alkaline Phosphata se 70 Total Protein 6.0 L Albumin 2.8 L Globulin 3.2 SARS-CoV-2 Ag (Rap id) Negative Vitals: Last Vital Signs Temp 97.7 F 06/22/20 15:25 Pulse 93 06/22/20 15:25 Resp 18 06/22/20 15:25 BP 107/70 06/22/20 15:25 Pulse Ox 91 06/22/20 15:25 Discharge Plan Discharge Patient Disposition: Xfer SNF Condition: Stable Prescriptions: New Santyl 250 unit/gram Ointment 1 applic topical DAILY 30 Days Qty: 30 RF: 0 albuterol sulfate 2.5 mg/0.5 mL Solution For Nebulization 2.5 mg inhalation Q4H.RESPIRATORY PRN (Reason: Shortness Of Breath) 30 Days Qty: 30 RF: 0 ferrous gluconate 324 mg (37.5 mg iron) Tablet 324 mg PO BIDWM 30 Days Qty: 30 RF: 0 ceftriaxone 2 gram recon soln 1 g IV Q24H 7 Days Qty: 7 RF: 0 Continued albuterol sulfate 90 mcg/actuation HFA aerosol inhaler 2 puff INHALATION Q6H PRN (Reason: Shortness Of Breath) RF: 0 levothyroxine 125 mcg tablet 125 mcg PO DAILY RF: 0 simvastatin 20 mg tablet 20 mg PO DAILY RF: 0 omeprazole 20 mg capsule,delayed release(DR/EC) 20 mg PO DAILY RF: 0 amitriptyline 100 mg tablet 50 mg PO DAILY RF: 0 aspirin 81 mg tablet,delayed release (DR/EC) 81 mg PO DAILY RF: 0 acetaminophen [Tylenol Extra Strength] 500 mg tablet 500 mg PO Q6H PRN (Reason: Pain, Mild) RF: 0 hydrocodone-acetaminophen 5-325 mg tablet 1 tab PO BID PRN (Reason: pain) 7 Days Qty: 14 RF: 0 gabapentin 300 mg capsule 300 mg PO TID Qty: 90 RF: 1 Discontinued lisinopril 40 mg tablet 40 mg PO DAILY RF: 0 Discharge Orders: Discharge Order (Routine); Ordered 06/22/20 Ordered By: Cristina Harman Referrals: [facility], [Staff Physician] - 06/25/20 1:30 pm (APPOINTMENT WITH WOUND CARE [phone]) Discharge Diet: Usual diet Discharge Activity: As per PT/OT instructions Patient Instructions: Opioid Safety Discharge Attestations Time Spent in Discharge Care*: greater than 30 min Specific Discharge Activities: educating patient, educating and/or supporting family/caregiver, discussing with case technician/social workers/dc planners and documenting/other paperwork Quality Metrics Clinical Quality Measures During this hospital stay, did patient experience: None Coding Level of Care Code Acute Chg DC note Diagnoses Ulcer of left foot L97.529 Acute kidney injury superimposed on CKD N17.9; N18.9 CKD (chronic kidney disease) N18.9 Urethral stricture N99.116 Urethral stricture type: post-procedural Urethral stricture sex-location: male urethra-overlapping sites Chronic indwelling Moscoso catheter Z97.8 COPD (chronic obstructive pulmonary disease) J44.9 Hypothyroid E03.9 Left tibial fracture S82.202A
== END 2020-06-22 15:27 | disposition skilled nursing facility (03) | DRG 602 ==
PROVIDERS: Admitting Provider Student in an Organized Health Care Education/Training Program; PCP Emergency Medicine Emergency Medical Services; Visit Provider Student in an Organized Health Care Education/Training Program
DX: L03.116 Cellulitis of left lower limb (principal); L89.623 Pressure ulcer of left heel, stage 3; T83.518A Infection and inflammatory reaction due to other urinary catheter, initial encounter; N17.9 Acute kidney failure, unspecified; G20 Parkinson's disease; E03.9 Hypothyroidism, unspecified; J44.9 Chronic obstructive pulmonary disease, unspecified; I12.9 Hypertensive chronic kidney disease with stage 1 through stage 4 chronic kidney disease, or unspecified chronic kidney disease; N18.30 Chronic kidney disease, stage 3 unspecified; E78.5 Hyperlipidemia, unspecified; Z85.46 Personal history of malignant neoplasm of prostate; Z98.1 Arthrodesis status; G60.8 Other hereditary and idiopathic neuropathies; M43.16 Spondylolisthesis, lumbar region; M54.16 Radiculopathy, lumbar region; N13.5 Crossing vessel and stricture of ureter without hydronephrosis; R33.9 Retention of urine, unspecified; Z87.891 Personal history of nicotine dependence; B96.20 Unspecified Escherichia coli [E. coli] as the cause of diseases classified elsewhere; D50.9 Iron deficiency anemia, unspecified; S82.302A Unspecified fracture of lower end of left tibia, initial encounter for closed fracture; W19.XXXA Unspecified fall, initial encounter
CPT/HCPCS: 36415; 36569; 51702; 71045; 73620; 73700; 73720; 80053; 80061; 80202; 81001; 82436; 82550; 82570; 82728; 83036; 83540; 83550; 83605; 83735; 84100; 84133; 84145; 84300; 84439; 84443; 84481; 85025; 85651; 86140; 87040; 87070; 87075; 87086; 87205; 87426; 87493; 87641; 93308; 93925; 96372; 97110; 97162; 97530; A9579; J0696; J1644; J2543; J3370; J3490; J7030

== ENCOUNTER → 2020-07-05 14:23 | Outpatient (BNVA) | payer OTHER, SELFPAY | PROVIDERS: PCP Emergency Medicine Emergency Medical Services; Visit Provider Specialist | DX: M25.572 Pain in left ankle and joints of left foot (principal); S82.832D Other fracture of upper and lower end of left fibula, subsequent encounter for closed fracture with routine healing; W00.0XXD Fall on same level due to ice and snow, subsequent encounter; L97.529 Non-pressure chronic ulcer of other part of left foot with unspecified severity | CPT/HCPCS: 73610 ==

== ENCOUNTER 2020-07-05 15:34 | Outpatient (CLI) | payer OTHER, SELFPAY | END 2020-07-05 15:35 | disposition home or self-care (01) | LOC: SPT 15:35 | PROVIDERS: PCP Emergency Medicine Emergency Medical Services; Visit Provider Specialist | DX: Z46.89 Encounter for fitting and adjustment of other specified devices (principal); S82.832D Other fracture of upper and lower end of left fibula, subsequent encounter for closed fracture with routine healing; X58.XXXD Exposure to other specified factors, subsequent encounter | CPT/HCPCS: 97760; L1902 ==

== ENCOUNTER → 2020-08-05 11:12 | Outpatient (BNVA) | payer OTHER, SELFPAY | PROVIDERS: PCP Emergency Medicine Emergency Medical Services; Visit Provider Specialist | DX: M25.572 Pain in left ankle and joints of left foot (principal); S82.832D Other fracture of upper and lower end of left fibula, subsequent encounter for closed fracture with routine healing; X58.XXXD Exposure to other specified factors, subsequent encounter | CPT/HCPCS: 73610 ==

== ENCOUNTER → 2020-11-10 09:58 | Outpatient (BNVA) | payer OTHER, SELFPAY | PROVIDERS: PCP Emergency Medicine Emergency Medical Services; Referring Provider Emergency Medicine Emergency Medical Services; Visit Provider Podiatrist Foot & Ankle Surgery | DX: M79.672 Pain in left foot (principal) | CPT/HCPCS: 73630 ==

== ENCOUNTER → 2021-01-19 09:23 | Outpatient (BNVA) | payer OTHER, SELFPAY | PROVIDERS: PCP Emergency Medicine Emergency Medical Services; Visit Provider Podiatrist Foot & Ankle Surgery | DX: M79.672 Pain in left foot (principal); M25.572 Pain in left ankle and joints of left foot; I73.9 Peripheral vascular disease, unspecified; M20.41 Other hammer toe(s) (acquired), right foot; M20.42 Other hammer toe(s) (acquired), left foot; M76.822 Posterior tibial tendinitis, left leg; M20.32 Hallux varus (acquired), left foot; M24.572 Contracture, left ankle; M25.372 Other instability, left ankle; L97.421 Non-pressure chronic ulcer of left heel and midfoot limited to breakdown of skin | CPT/HCPCS: 73610; 73630 ==

== ENCOUNTER → 2021-06-22 10:07 | Outpatient (BNVA) | payer OTHER, SELFPAY | PROVIDERS: PCP Emergency Medicine Emergency Medical Services; Visit Provider Podiatrist Foot & Ankle Surgery | DX: I73.9 Peripheral vascular disease, unspecified (principal); M20.41 Other hammer toe(s) (acquired), right foot; M20.42 Other hammer toe(s) (acquired), left foot; M20.31 Hallux varus (acquired), right foot; M24.572 Contracture, left ankle; M76.822 Posterior tibial tendinitis, left leg; M25.372 Other instability, left ankle; M20.32 Hallux varus (acquired), left foot; Z87.891 Personal history of nicotine dependence | CPT/HCPCS: 99213; 99214 ==

== ENCOUNTER 2021-11-03 08:59 | Outpatient (CLI) | payer OTHER, SELFPAY | END 2021-11-03 09:00 | disposition home or self-care (01) | LOC: LAB 09:03 | PROVIDERS: PCP Emergency Medicine Emergency Medical Services; Visit Provider Urology | DX: N13.8 Other obstructive and reflux uropathy (principal); N40.1 Benign prostatic hyperplasia with lower urinary tract symptoms; R33.9 Retention of urine, unspecified; N36.8 Other specified disorders of urethra; N99.116 Postprocedural urethral stricture, male, overlapping sites; C61 Malignant neoplasm of prostate | CPT/HCPCS: 36415; 84153; 99213 ==

== ENCOUNTER → 2022-06-20 09:29 | Outpatient (BNVA) | payer OTHER, SELFPAY | PROVIDERS: PCP Emergency Medicine Emergency Medical Services; Visit Provider Podiatrist Foot & Ankle Surgery | DX: I73.9 Peripheral vascular disease, unspecified (principal); M20.41 Other hammer toe(s) (acquired), right foot; M20.42 Other hammer toe(s) (acquired), left foot; M20.32 Hallux varus (acquired), left foot; M20.31 Hallux varus (acquired), right foot; M24.572 Contracture, left ankle; M76.822 Posterior tibial tendinitis, left leg; M25.372 Other instability, left ankle; M76.72 Peroneal tendinitis, left leg | CPT/HCPCS: 99213 ==

== ENCOUNTER → 2023-01-08 09:10 | Outpatient (BNVA) | payer OTHER, SELFPAY | PROVIDERS: PCP Emergency Medicine Emergency Medical Services; Referring Provider Emergency Medicine Emergency Medical Services; Visit Provider Specialist | DX: M25.561 Pain in right knee (principal); M79.672 Pain in left foot; M25.572 Pain in left ankle and joints of left foot; I73.9 Peripheral vascular disease, unspecified; M20.41 Other hammer toe(s) (acquired), right foot; M20.42 Other hammer toe(s) (acquired), left foot; M20.32 Hallux varus (acquired), left foot; M24.572 Contracture, left ankle; M76.822 Posterior tibial tendinitis, left leg; M25.372 Other instability, left ankle; M76.72 Peroneal tendinitis, left leg; M17.0 Bilateral primary osteoarthritis of knee | CPT/HCPCS: 73560; 73565; 73610; 73620; 99204; 99213 ==

== ENCOUNTER → 2023-01-18 12:42 | Outpatient (BNVA) | payer OTHER, SELFPAY | PROVIDERS: PCP Emergency Medicine Emergency Medical Services; Visit Provider Dermatology | DX: D48.5 Neoplasm of uncertain behavior of skin (principal); D17.0 Benign lipomatous neoplasm of skin and subcutaneous tissue of head, face and neck; L21.8 Other seborrheic dermatitis; L82.1 Other seborrheic keratosis; D18.01 Hemangioma of skin and subcutaneous tissue | CPT/HCPCS: 11102; 99204 ==

== ENCOUNTER → 2023-04-16 08:22 | Outpatient (BNVA) | payer OTHER, SELFPAY | PROVIDERS: PCP Emergency Medicine Emergency Medical Services; Visit Provider Podiatrist Foot & Ankle Surgery | DX: I73.9 Peripheral vascular disease, unspecified; M20.41 Other hammer toe(s) (acquired), right foot; M20.42 Other hammer toe(s) (acquired), left foot; M24.572 Contracture, left ankle; M76.72 Peroneal tendinitis, left leg | CPT/HCPCS: 99213 ==

== ENCOUNTER → 2023-05-17 15:56 | Outpatient (BNVA) | payer OTHER, SELFPAY | PROVIDERS: PCP Emergency Medicine Emergency Medical Services; Visit Provider Family Medicine | DX: M54.50 Low back pain, unspecified (principal); M48.062 Spinal stenosis, lumbar region with neurogenic claudication | CPT/HCPCS: 81000 ==

== ENCOUNTER → 2023-06-20 10:17 | Outpatient (BNVA) | payer OTHER, SELFPAY | PROVIDERS: PCP Emergency Medicine Emergency Medical Services; Visit Provider Podiatrist Foot & Ankle Surgery | DX: I73.9 Peripheral vascular disease, unspecified; M20.41 Other hammer toe(s) (acquired), right foot; M20.42 Other hammer toe(s) (acquired), left foot; M24.572 Contracture, left ankle; M76.72 Peroneal tendinitis, left leg | CPT/HCPCS: 99213 ==

== ENCOUNTER → 2023-07-30 09:26 | Outpatient (BNVA) | payer OTHER, SELFPAY | PROVIDERS: PCP Emergency Medicine Emergency Medical Services; Visit Provider Podiatrist Foot & Ankle Surgery | DX: I73.9 Peripheral vascular disease, unspecified; M20.41 Other hammer toe(s) (acquired), right foot; M20.42 Other hammer toe(s) (acquired), left foot; M24.572 Contracture, left ankle; M76.72 Peroneal tendinitis, left leg; L60.3 Nail dystrophy | CPT/HCPCS: 99213 ==

== ENCOUNTER → 2023-11-06 07:42 | Outpatient (BNVA) | payer OTHER, SELFPAY | PROVIDERS: PCP Emergency Medicine Emergency Medical Services; Visit Provider Podiatrist Foot & Ankle Surgery | DX: M79.672 Pain in left foot (principal); I73.9 Peripheral vascular disease, unspecified; M20.41 Other hammer toe(s) (acquired), right foot; M20.42 Other hammer toe(s) (acquired), left foot; M24.572 Contracture, left ankle; M76.72 Peroneal tendinitis, left leg; L60.3 Nail dystrophy | CPT/HCPCS: 11721 ==

== ENCOUNTER → 2024-02-05 07:40 | Outpatient (BNVA) | payer OTHER, SELFPAY | PROVIDERS: PCP Emergency Medicine Emergency Medical Services; Visit Provider Podiatrist Foot & Ankle Surgery | DX: I73.9 Peripheral vascular disease, unspecified; M20.41 Other hammer toe(s) (acquired), right foot; M20.42 Other hammer toe(s) (acquired), left foot; M24.572 Contracture, left ankle; M76.72 Peroneal tendinitis, left leg; L60.3 Nail dystrophy | CPT/HCPCS: 11721; 99213 ==

== ENCOUNTER → 2024-03-20 07:34 | Outpatient (BNVA) | payer OTHER, SELFPAY | PROVIDERS: PCP Emergency Medicine Emergency Medical Services; Referring Provider Family Medicine; Visit Provider Psychiatry & Neurology Neurology | DX: G25.0 Essential tremor (principal); G20.A1 Parkinson's disease without dyskinesia, without mention of fluctuations; G25.3 Myoclonus | CPT/HCPCS: 99203 ==

== ENCOUNTER → 2024-05-06 07:37 | Outpatient (BNVA) | payer OTHER, SELFPAY | PROVIDERS: PCP Emergency Medicine Emergency Medical Services; Visit Provider Podiatrist Foot & Ankle Surgery | DX: I73.9 Peripheral vascular disease, unspecified (principal); M20.41 Other hammer toe(s) (acquired), right foot; M20.42 Other hammer toe(s) (acquired), left foot; M24.572 Contracture, left ankle; M76.72 Peroneal tendinitis, left leg; L60.3 Nail dystrophy | CPT/HCPCS: 99213 ==

== ENCOUNTER → 2024-08-05 07:41 | Outpatient (BNVA) | payer OTHER, SELFPAY | PROVIDERS: PCP Family Medicine; Visit Provider Podiatrist Foot & Ankle Surgery | DX: M77.51 Other enthesopathy of right foot and ankle (principal); M76.72 Peroneal tendinitis, left leg; M72.2 Plantar fascial fibromatosis | CPT/HCPCS: 99214 ==

== ENCOUNTER → 2024-10-21 07:40 | Outpatient (BNVA) | payer OTHER, SELFPAY | PROVIDERS: PCP Family Medicine; Visit Provider Podiatrist Foot & Ankle Surgery | DX: I73.9 Peripheral vascular disease, unspecified (principal); L60.3 Nail dystrophy; M77.51 Other enthesopathy of right foot and ankle; M76.72 Peroneal tendinitis, left leg; M72.2 Plantar fascial fibromatosis; L60.0 Ingrowing nail | CPT/HCPCS: 11721; 99214 ==

== ENCOUNTER → 2024-12-23 07:38 | Outpatient (BNVA) | payer OTHER, SELFPAY | PROVIDERS: PCP Family Medicine; Visit Provider Podiatrist Foot & Ankle Surgery | DX: I73.9 Peripheral vascular disease, unspecified (principal); L60.3 Nail dystrophy; L60.0 Ingrowing nail | CPT/HCPCS: 11721; 99213 ==

== ENCOUNTER 2024-12-26 08:44 | Outpatient (CLI) | payer OTHER, SELFPAY ==
--- NOTE | 2024-12-26 09:30 | USR_ITS ---
PROCEDURE INFORMATION: Exam: US Right Noninvasive Physiologic Study of the Lower Extremity Arteries, Limited Exam date and time: 12/26/2024 9:37 AM Age: 84 years old Clinical indication: Condition or disease; Peripheral vascular disease; Additional info: Pad TECHNIQUE: Imaging protocol: Right Limited bilateral noninvasive physiologic studies of lower extremity arteries. Waveforms were obtained and evaluated. Images were documented and archived. Exam is limited. COMPARISON: CR XR knees AP WB w RT lmt ORTH 01/08/2023 10:11 AM FINDINGS: Right Ankle-Brachial Index: 0.98. Left Ankle-Brachial Index: Not performed. US/[place] [id number] IMPRESSION: No evidence of stenosis or occlusion in the lower extremity.
== END 2024-12-26 08:45 | disposition home or self-care (01) ==
PROVIDERS: PCP Family Medicine; Visit Provider Podiatrist Foot & Ankle Surgery
DX: I73.9 Peripheral vascular disease, unspecified (principal)
CPT/HCPCS: 93922